=== PATIENT | male | born 1940 | race Caucasian/White ===

== ENCOUNTER → 2017-11-27 | Outpatient (CLI) | payer MEDICARE, OTHER ==
--- NOTE | 2017-11-27 12:38 | XR ---
EXAMINATION TYPE: XR lumbar spine 2 or 3V DATE OF EXAM: 11/27/2017 CLINICAL HISTORY: Spinal stenosis per order. Pain into feet per patient. TECHNIQUE: Frontal and lateral images of the lumbar spine are obtained. COMPARISON: None FINDINGS: There are 5 lumbar type vertebral bodies identified. The lumbar spine shows satisfactory alignment without evidence of acute fracture or dislocation. Vertebral body heights and disk space he ights are within normal limits. Moderate multilevel anterior spurring is present. Facet arthropathy l ower lumbar levels is noted. Vascular calcification overlying soft tissue is seen. IMPRESSION: As above.
== END | disposition home or self-care (01) ==
LOC: RADXRMAIN 11:48
PROVIDERS: ATTEND Internal Medicine Geriatric Medicine
DX: M46.86 Other specified inflammatory spondylopathies, lumbar region (principal)
CPT/HCPCS: 72100

== ENCOUNTER → 2018-11-24 | Outpatient (CLI) | payer MEDICARE ==
--- NOTE | 2018-11-24 09:11 | MR ---
EXAMINATION TYPE: MR iac wo/w con DATE OF EXAM: 11/24/2018 COMPARISON: None. HISTORY: Vertigo TECHNIQUE: Multiplanar, multisequence images of the brain and brainstem is performed without and with IV contras t, utilizing 9 mL intravenous Gadavist . FINDINGS: There is an 8.7 x 1.6 x 9.8 mm area of increased signal on T1 and T2-weighted images in the external capsule on the left. There is some blooming artifact adjacent to this. This shows restricte d diffusion. Midline structures are unremarkable. There is a normal craniocervical junction. No other areas of restricted diffusion are seen. There are normal vascular flow voids. The orbits are unremarkable. There is nuchal periosteal disease involving the left-sided ethmoid air cells. High-resolution imaging through the posterior fossa exquisitely demonstrates the seventh 8th nerve co mplex without evidence of a CP angle mass lesion or intracanalicular acoustic schwannoma. There are diffuse increased Virchow-Guzman spaces. There is both confluent and punctate periventricula r white matter change likely on the basis small vessel disease and chronic white matter ischemic darby ge. There is no mass effect, midline shift or intracranial blood. Following intravenous administration of gadolinium, I do not see evidence of abnormal enhancement. Sp ecifically, I do not see evidence of an enhancing intracanalicular tumor.. IMPRESSION: 1. 8.7 MM AREA OF INCREASED SIGNAL IN THE EXTERNAL CAPSULE ON THE LEFT MAY REPRESENT A SUBACUTE BLEED . THERE IS SOME BLOOMING ARTIFACT ADJACENT TO IT. 2. NO EVIDENCE OF A CP ANGLE MASS LESION OR INTRACANALICULAR ACOUSTIC SCHWANNOMA. 3. DIFFUSE INCREASED VIRCHOW-GUZMAN SPACES. 4. BOTH CONFLUENT AND PUNCTATE PERIVENTRICULAR WHITE MATTER CHANGE, CONSISTENT WITH A COMBINATION OF SMALL VESSEL DISEASE AND CHRONIC ISCHEMIC CHANGE.
== END | disposition home or self-care (01) ==
LOC: RADMRIMAIN 08:11
PROVIDERS: ATTEND Otolaryngology
DX: R90.89 Other abnormal findings on diagnostic imaging of central nervous system (principal)
CPT/HCPCS: 70553; A9585

== ENCOUNTER → 2018-11-28 | Outpatient (CLI) | payer MEDICARE, OTHER ==
--- NOTE | 2018-11-29 18:12 | ENG ---
ELECTRONYSTAGMOGRAM REPORT VIDEO ELECTRONYSTAGMOGRAPHIC REPORT: AGE: 78 ENG INDICATIONS: dizziness ongoing for about 1 year, gradual in onset, getting worse and is constant. Dizziness not affected by any positional changes. Denies hearing loss. Has bilateral tinnitus of a steady nature. VNG FINDINGS: SPONTANEOUS NYSTAGMUS: SACCADES: Saccades shows intact peak velocities, however, impaired accuracies and latencies. GAZE TEST: Gaze with fixation shows no nystagmus in any of the directions of gaze including centrally with vision denied. SINUSOIDAL TRACKING: Tracking is within normal limits. OKN TEST: Optokinetic nystagmus shows no significant asymmetries. HERNANDO-HALLPIKE TEST: POSITION TEST: Static position testing in seated, supine, head right, head left, on the right side and on the left side shows no significant nystagmus with eyes open or vision denied. CALORIC TEST: Caloric testing shows 8% unilateral right caloric weakness which is within normal limits. IMPRESSION: This VNG shows abnormal saccades, which favors central nervous system dysfunction. All other features of this test showed no other abnormalities. MMODL / IJN: [id number] /
== END ==
LOC: NEUROMAIN 06:37
PROVIDERS: ATTEND Otolaryngology
DX: R42 Dizziness and giddiness (principal)
CPT/HCPCS: 92537; 92540

== ENCOUNTER → 2018-12-20 | Outpatient (CLI) | payer MEDICARE, OTHER ==
--- NOTE | 2018-12-20 11:23 | US ---
EXAMINATION TYPE: US renal artery duplex complet DATE OF EXAM: 12/20/2018 COMPARISON: NONE CLINICAL HISTORY: I10 HYPERTENSION. MEASUREMENTS: RENAL SIZE: Rt Kidney: 12.2 x 5.5 x 4.9cm Lt Kidney: 13.0 x 5.7 x cm5.5 RESISTANCE INDEX Right: 0.64 Left: 0.62 RA/AO RATIO (< 3.5 ) Right: 2.3 Left: 1.7 RA VELOCITY ( < 180 cm/s) Right: 165cm/s Left: 123cm/s Extensive overlying bowel gas. Technically difficult study. Proximal aorta mostly obscured by bowel gas. RIGHT: cyst measuring 1.5 x 1.4 x 1.4cm, kidney measures large but overall symmetric. No evidence of renal artery stenosis. LEFT: cyst measuring 4.8 x 3.5 x 4.2cm, kidney measures large but overall symmetric, very limited vis ualization due to overlying bowel gas, distal portion of renal artery obscured. No evidence of renal artery stenosis however this side is more limited. IMPRESSION: 1. No sonographic evidence of renal arterial stenosis. Left kidney evaluation is limited by overlying bowel gas. 2. Bilateral renal cysts measuring up to 4.8 cm on the left and 1.5 cm on the right.
== END | disposition home or self-care (01) ==
LOC: RADUSWWP 07:41
PROVIDERS: ATTEND Internal Medicine Geriatric Medicine
DX: N28.1 Cyst of kidney, acquired (principal); I10 Essential (primary) hypertension
CPT/HCPCS: 93975

== ENCOUNTER 2023-09-17 23:08 | Inpatient (IN) | payer MEDICARE ==
[2023-09-17 23:57] LABS: ALT 20 U/L (4-49); AST 28 U/L (17-59); African American GFR (CKD) 65 (>60 ml/min/1.73 sqM); Albumin 3.5 g/dL (3.5-5.0); Alkaline Phosphatase 70 U/L (38-126); Anion Gap 8 mmol/L; Blood Urea Nitrogen 30 mg/dL (9-20); Calcium 8.6 mg/dL (8.4-10.2); Carbon Dioxide 22 mmol/L (22-30); Chloride 100 mmol/L (98-107); Glucose 103 mg/dL (74-99); Magnesium 1.9 mg/dL (1.6-2.3); Non-African American GFR(CKD) 56 (>60 ml/min/1.73 sqM); Potassium 3.9 mmol/L (3.5-5.1); Sodium 130 mmol/L (137-145); Total Bilirubin 0.7 mg/dL (0.2-1.3); Total Protein 5.9 g/dL (6.3-8.2)
[2023-09-18 00:02] LABS: Basophils % (A) 0 %; Eosinophils # (A) 0.3 k/uL (0-0.7); Eosinophils % (A) 4 %; HGB 13.1 gm/dL (13.0-17.5); Lymphocytes # (A) 0.8 k/uL (1.0-4.8); Lymphocytes % (A) 10 %; MCH 32.9 pg (25.0-35.0); MCHC 33.6 g/dL (31.0-37.0); MCV 97.8 fL (80.0-100.0); Mean Platelet Volume 9.7; Monocytes # (A) 0.8 k/uL (0-1.0); Monocytes % (A) 10 %; Neutrophils # (A) 5.6 k/uL (1.3-7.7); Neutrophils % (A) 73 %; Platelet Count 140 k/uL (150-450); RBC 3.99 m/uL (4.30-5.90); RDW 14.3 % (11.5-15.5); WBC 7.6 k/uL (3.8-10.6)
[2023-09-18 00:03] LABS: Prothrombin Time 11.3 sec (10.0-12.5)
[2023-09-18] MEDS ORDERED: ACETAMINOPHEN TAB 325 MG TAB PO PRN (01:04)
[2023-09-18] MEDS ORDERED: ONDANSETRON 4 MG/2 ML VIAL IVP PRN (01:04)
[2023-09-18] MEDS ORDERED: NALOXONE 0.4 MG/ML 1 ML VIAL IV PRN (01:04)
--- NOTE | 2023-09-18 01:04 | ED ---
General Adult HPI - General Chief complaint: Weakness Stated complaint: Weakness Time Seen by Provider: 09/17/23 23:28 Source: patient, EMS, RN notes reviewed, old records reviewed Mode of arrival: EMS Limitations: no limitations - History of Present Illness Initial comments: Patient is an 83-year-old male presents emergency department for weakness. Has been ongoing for last few weeks to months. Progressively worsening. Primarily in the lower extremities. Has noticed intermittent urinary incontinence recently as well. Also low-grade fever today. Denies any falls or pain. Has a history of hypertension. Denies any fevers, chills, cough, chest pain, shortness of breath, abdominal pain with nausea, vomiting, diarrhea. Presents for further evaluation at this time.Patient denies saddle paresthesias, bowel incontinence, lower back pain. - Related Data Home Medications Medication Instructions Recorded Confirmed Aspirin 1 tab PO DAILY 02/25/17 02/25/17 Diltiazem Cd [Cardizem Cd] 120 mg PO DAILY 02/25/17 02/25/17 Pravastatin Sodium [Pravachol] 1 tab PO DAILY 02/25/17 02/25/17 cloNIDine HCL [Catapres] 1 tab PO BID 02/25/17 02/25/17 hydroCHLOROthiazide [Hydrodiuril] 1 tab PO DAILY 02/25/17 02/25/17 Allergies Allergy/AdvReac Type Severity Reaction Status Date / Time No Known Allergies Allergy Verified 09/17/23 23:18 Review of Systems ROS Statement: Those systems with pertinent positive or pertinent negative responses have been documented in the HPI. Review of Systems: CONST: Denies fever EYES: Denies blurry vision ENT: Denies nasal congestion C/V: Denies Chest pain RESP: Denies shortness of breath GI: Denies abdominal pain : Denies dysuria SKIN: Denies rash. MSK: Denies joint pain. NEURO: Denies headache ROS Other: All systems not noted in ROS Statement are negative. Past Medical History Past Medical History: Hypertension History of Any Multi-Drug Resistant Organisms: None Reported Past Surgical History: Orthopedic Surgery Past Psychological History: No Psychological Hx Reported Past Alcohol Use History: Occasional Past Drug Use History: None Reported General Exam - General Exam Comments Initial Comments: General: Appears in no acute distress. HEAD: Normal with no signs of head trauma. EYES: PERRLA, EOMI, conjunctiva normal, no discharge. ENT: Hearing grossly intact, normal oropharynx. RESPIRATORY: Clear breath sounds bilaterally. No wheezes, rales, or rhonchi. C/V: Regular rate and rhythm. S1 and S2 auscultated, no edema, peripheral pulses 2+ and intact throughout ABD: Abd is soft, nontender, nondistended EXT: Normal range of motion, no obvious deformity SKIN: No rashes or lesions observed on exposed skin. NEURO: Alert and oriented x 4. Generalized weakness with no focal weakness. NIH of 0. GCS of 15. Limitations: no limitations Course Vital Signs 09/17/23 23:11 Temperature 100.3 F H Pulse Rate 68 Respiratory 22 Rate Blood Pressure 168/90 O2 Sat by Pulse 95 Oximetry Medical Decision Making - Medical Decision Making Was pt. sent in by a medical professional or institution (JANET Preciado, [employer] OFFICER, urgent care, hospital, or penitentiary...) When possible be specific @ -No Did you speak to anyone other than the patient for history (EMS, parent, family, police, friend...)? What history was obtained from this source @ -No Did you review nursing and triage notes (agree or disagree)? Why? @ -I reviewed and agree with nursing and triage notes Were old charts reviewed (outside hosp., previous admission, EMS record, old EKG, old radiological studies, urgent care reports/EKG's, penitentiary records)? Report findings @ -Old charts reviewed confirmed patient has a history of hypertension. Differential Diagnosis (chest pain, altered mental status, abdominal pain women, abdominal pain men, vaginal bleeding, weakness, fever, dyspnea, syncope, headache, dizziness, GI bleed, back pain, seizure, CVA, palpatations, mental health, musculoskeletal)? @ -Differential Weakness: Hypoglycemia, shock, sepsis, hyponatremia, anemia, infection, ME, ETOH, adverse medicine reaction, overdose, stroke, this is not meant to be an all-inclusive list. EKG interpreted by me (3pts min.). @ -As above X-rays interpreted by me (1pt min.). @ - CT interpreted by me (1pt min.). @ - U/S interpreted by me (1pt. min.). @ -None done What testing was considered but not performed or refused? (CT, X-rays, U/S, labs)? Why? @ -None What meds were considered but not given or refused? Why? @ -None Did you discuss the management of the patient with other professionals (professionals i.e. DrZachary, PA, [employer] OFFICER, lab, RT, psych nurse, social research assistant, glass block installer, teacher, public service officer, geriatric case manager)? Give summary @ -No Was smoking cessation discussed for >3mins.? @ -No Was critical care preformed (if so, how long)? @ -No Were there social determinants of health that impacted care today? How? (Homelessness, low income, unemployed, alcoholism, drug addiction, transportation, low edu. Level, literacy, decrease access to med. care, usp, rehab)? @ -No Was there de-escalation of care discussed even if they declined (Discuss DNR or withdrawal of care, Hospice)? DNR status @ -No What co-morbidities impacted this encounter? (DM, HTN, Smoking, COPD, CAD, Cancer, CVA, ARF, Chemo, Hep., AIDS, mental health diagnosis, sleep apnea, morbid obesity)? @ -None Was patient admitted / discharged? Hospital course, mention meds given and route, prescriptions, significant lab abnormalities, going to OR and other pertinent info. @ -Based on the patient's presentation and physical exam, presents with a low- grade fever as well as generalized weakness primarily in the lower extremities which has been progressive. Seems to have progressive debility. Will obtain basic weakness workup. He has no obvious focal deficits at this time. He will receive IV fluids as well as Tylenol for fever control. He was in agreement this plan. Vital signs are within acceptable limits other than the fever. Laboratory studies are remarkable for normal lactic acid. No leukocytosis. Urinalysis as well as Cepheid still pending at time of admission. I discussed results with the patient and I would like to admit him for the weakness and debility. I also discussed results with patient's admitting physician, Dr. Patino who accepted the admission. Undiagnosed new problem with uncertain prognosis? @ -No Drug Therapy requiring intensive monitoring for toxicity (Heparin, Nitro, Insulin, Cardizem)? @ -No Were any procedures done? @ -No Diagnosis/symptom? @ -Weakness, debility Acute, or Chronic, or Acute on Chronic? @ -Acute Uncomplicated (without systemic symptoms) or Complicated (systemic symptoms)? @ -Complicated Side effects of treatment? @ -No Exacerbation, Progression, or Severe Exacerbation? @ -No Poses a threat to life or bodily function? How? (Chest pain, USA, ME, pneumonia, PE, COPD, DKA, ARF, appy, cholecystitis, CVA, Diverticulitis, Homicidal, Suicidal, threat to staff... and all critical care pts) @ -Yes - Lab Data Result diagrams: 09/17/23 23:33 09/17/23 23:33 Lab Results 09/17/23 09/17/23 09/17/23 Range/Units 23:33 23:33 23:33 WBC 7.6 (3.8-10.6) k/uL RBC 3.99 L (4.30-5.90) m/uL Hgb 13.1 (13.0-17.5) gm/dL Hct 39.0 (39.0-53.0) % MCV 97.8 (80.0-100.0) fL MCH 32.9 (25.0-35.0) pg MCHC 33.6 (31.0-37.0) g/dL RDW 14.3 (11.5-15.5) % Plt Count 140 L (150-450) k/uL MPV 9.7 Neutrophils % 73 % Lymphocytes % 10 % Monocytes % 10 % Eosinophils % 4 % Basophils % 0 % Neutrophils # 5.6 (1.3-7.7) k/uL Lymphocytes # 0.8 L (1.0-4.8) k/uL Monocytes # 0.8 (0-1.0) k/uL Eosinophils # 0.3 (0-0.7) k/uL Basophils # 0.0 (0-0.2) k/uL PT 11.3 (10.0-12.5) sec INR 1.0 (<1.2) APTT 24.0 (22.0-30.0) sec Sodium 130 L (137-145) mmol/L Potassium 3.9 (3.5-5.1) mmol/L Chloride 100 (98-107) mmol/L Carbon Dioxide 22 (22-30) mmol/L Anion Gap 8 mmol/L BUN 30 H (9-20) mg/dL Creatinine 1.19 (0.66-1.25) mg/dL Est GFR (CKD-EPI)AfAm 65 (>60 ml/min/1.73 sqM) Est GFR (CKD-EPI)NonAf 56 (>60 ml/min/1.73 sqM) Glucose 103 H (74-99) mg/dL Plasma Lactic Acid Fei (0.7-2.0) mmol/L Calcium 8.6 (8.4-10.2) mg/dL Magnesium 1.9 (1.6-2.3) mg/dL Total Bilirubin 0.7 (0.2-1.3) mg/dL AST 28 (17-59) U/L ALT 20 (4-49) U/L Alkaline Phosphatase 70 (38-126) U/L Total Protein 5.9 L (6.3-8.2) g/dL Albumin 3.5 (3.5-5.0) g/dL 09/17/23 Range/Units 23:33 WBC (3.8-10.6) k/uL RBC (4.30-5.90) m/uL Hgb (13.0-17.5) gm/dL Hct (39.0-53.0) % MCV (80.0-100.0) fL MCH (25.0-35.0) pg MCHC (31.0-37.0) g/dL RDW (11.5-15.5) % Plt Count (150-450) k/uL MPV Neutrophils % % Lymphocytes % % Monocytes % % Eosinophils % % Basophils % % Neutrophils # (1.3-7.7) k/uL Lymphocytes # (1.0-4.8) k/uL Monocytes # (0-1.0) k/uL Eosinophils # (0-0.7) k/uL Basophils # (0-0.2) k/uL PT (10.0-12.5) sec INR (<1.2) APTT (22.0-30.0) sec Sodium (137-145) mmol/L Potassium (3.5-5.1) mmol/L Chloride (98-107) mmol/L Carbon Dioxide (22-30) mmol/L Anion Gap mmol/L BUN (9-20) mg/dL Creatinine (0.66-1.25) mg/dL Est GFR (CKD-EPI)AfAm (>60 ml/min/1.73 sqM) Est GFR (CKD-EPI)NonAf (>60 ml/min/1.73 sqM) Glucose (74-99) mg/dL Plasma Lactic Acid Fei 0.9 (0.7-2.0) mmol/L Calcium (8.4-10.2) mg/dL Magnesium (1.6-2.3) mg/dL Total Bilirubin (0.2-1.3) mg/dL AST (17-59) U/L ALT (4-49) U/L Alkaline Phosphatase (38-126) U/L Total Protein (6.3-8.2) g/dL Albumin (3.5-5.0) g/dL - EKG Data -: EKG Interpreted by Me EKG Comments: 12-lead Electrocardiogram Interpretation Note EKG was reviewed and interpreted by myself. 12-lead ECG performed at 2350 is interpreted by me as revealing normal sinus rhythm with first-degree AV block at a rate of 74 beats per minute. Left axis deviation. NE interval is 248 ms, QRS duration is 129 ms, QTc is 4 1045 ms.. There were no ST or T wave abnormalities to suggest myocardial ischemia or injury. R wave progression across the precordium was satisfactory. By my interpretation this EKG is non- diagnostic for acute ischemia. Disposition Clinical Impression: Weakness, Debility Disposition: ADMITTED IP TO THIS HOSP Condition: Stable Referrals: Liza Correia MD [Primary Care Provider] - 1-2 days Time of Disposition: 01:03
--- NOTE | 2023-09-18 01:47 | XR ---
EXAM: XR Chest, 2 Views CLINICAL HISTORY: ITS.REASON XR Reason: Weakness TECHNIQUE: Frontal and lateral views of the chest. COMPARISON: No relevant prior studies available. IMPRESSION: -Cardiomegaly. Bibasilar opacities.
--- NOTE | 2023-09-18 01:52 | CT ---
EXAM: CT Lumbar Spine Without Intravenous Contrast CLINICAL HISTORY: ITS.REASON CT Reason: leg weakness TECHNIQUE: Axial computed tomography images of the lumbar spine without intravenous contrast. CTDI is 33.4 mGy and DLP is 1167.6 mGy-cm. This CT exam was performed using one or more of the following dose reduction techniques: automated exposure control, adjustment of the mA and/or kV according to patient size, and/or use of iterative reconstruction technique. COMPARISON: No relevant prior studies available. FINDINGS: Vertebrae: No acute fracture. No sagittal subluxation. Discs/spinal canal/neural foramina: Mild L3-4 spinal canal stenosis. Mild to moderate bilateral L3-4, L4-5 and L5-S1 foraminal stenosis. Soft tissues: Unremarkable. IMPRESSION: No acute fracture. Degenerative changes.
[2023-09-18] MEDS: ACETAMINOPHEN TAB 500 MG TAB PO STA (01:55)
[2023-09-18] MEDS: SODIUM CHLORIDE 0.9% 1,000 ML IV SCH (01:56)
[2023-09-18] MEDS: SODIUM CHLORIDE 0.9% 1,000 ML IV STA (01:56)
[2023-09-18 02:39] LABS: Appearance,Urine Clear (Clear); Bilirubin,Urine Negative (Negative); Blood,Urine Negative (Negative); Color,Urine Light Yellow; Glucose,Urine (UA) Negative (Negative); Ketones,Urine Trace (Negative); Leukocyte Esterase,Urine Negative (Negative); Mucus,Urine Rare /hpf; Nitrite,Urine Negative (Negative); Protein,Urine 1+ (Negative); RBC,Urine 1 /hpf (0-5); Specific Gravity,Urine 1.017 (1.001-1.035); Squamous Epithelial Cell,Urine <1 /hpf (0-4); Urobilinogen,Urine <2.0 mg/dL (<2.0); WBC,Urine <1 /hpf (0-5)
[2023-09-18] MEDS: LABETALOL 200 MG TAB PO SCH (11:35)
[2023-09-18] MEDS: hydrALAZINE HCL 50 MG TAB PO SCH (11:35)
--- NOTE | 2023-09-18 16:33 | CT ---
EXAMINATION TYPE: CT brain wo con DATE OF EXAM: 09/18/2023 COMPARISON: None HISTORY: Weakness, ?CVA CT DLP: 1192.[address] of the brain was performed. The ventricles, basal cisterns and sulci overlying the cerebral convexities demonstrate mild enlargem ent. There is no evidence for intracranial hemorrhage or sulcal effacement. There is decreased attenuation about the periventricular white matter and deep white matter of both c erebral hemispheres, compatible with chronic small vessel ischemia. Differential diagnosis does inclu de demyelination. No mass effects are seen.No midline shift. Osseous calvarium is intact. If symptoms persist consider MRI. IMPRESSION: 1. Age related atrophic and chronic small vessel ischemic change without acute intracranial process s een at this time.
--- NOTE | 2023-09-18 17:48 | P.HPIM ---
History of Present Illness H&P Date: 09/18/23 Gold Tsang, is an 83-year-old male who presented to [facility] emergency room with a chief complaint of worsening generalized weakness, and urinary incontinence, symptoms started about 1 week ago and has been worsening, patient was seen and examined in the emergency room, his and daughter at the bedside, they state that he was in his usual state of health until about 1 week ago where he started having worsening weakness, and had several episodes of urinary incontinence, they state that he was diagnosed with possible Parkinson disease about 1 year ago he was tried on Sinemet without any significant improvement and that was discontinued, a possible diagnosis of Lewy body dementia was entertained, family also stated that 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 He was ealuated in the emergency room vital examination on presentation revealed 100.3 pulse 68 respiration 22 blood pressure 168/90 pulse ox 95% on room air Laboratory data revealed a white blood count of 7.6 hemoglobin 13.1 platelet co unt 140 sodium 130 BUN 30 creatinine 1.19 BNP 5570 Testing in the emergency room revealed CT scan of the brain revealed age-related atrophic and chronic small vessel ischemic change without acute intracranial process, CT scan of the lumbar spine revealed no acute fracture, chest x-ray revealed cardiomegaly with bibasilar opacities Patient was admitted to medical floor for further evaluation and treatment Past Medical History Past Medical History: Hypertension History of Any Multi-Drug Resistant Organisms: None Reported Past Surgical History: Orthopedic Surgery Past Psychological History: No Psychological Hx Reported Past Alcohol Use History: Occasional Past Drug Use History: None Reported Medications and Allergies Home Medications Medication Instructions Recorded Confirmed Type Amoxicillin 500 mg PO BID 09/18/23 09/18/23 History Aspirin EC [Ecotrin Low Dose] 81 mg PO DAILY 09/18/23 09/18/23 History Labetalol [Trandate] 200 mg PO TID 09/18/23 09/18/23 History Magnesium Oxide [Magox 400] 400 mg PO DAILY 09/18/23 09/18/23 History Temazepam [Restoril] 15 mg PO HS 09/18/23 09/18/23 History hydrALAZINE HCL [Apresoline] 50 mg PO BID 09/18/23 09/18/23 History traMADol HCl [Ultram] 50 mg PO HS PRN 09/18/23 09/18/23 History Allergies Allergy/AdvReac Type Severity Reaction Status Date / Time No Known Allergies Allergy Verified 09/18/23 08:14 Physical Exam Vitals: Vital Signs Temp Pulse Resp BP BP Pulse Ox 09/18/23 11:29 170/83 09/18/23 06:00 60 18 165/84 98 09/18/23 05:00 64 18 167/112 97 09/18/23 03:20 98.3 F 71 18 172/86 98 09/18/23 01:49 74 24 192/97 98 09/18/23 01:00 72 20 183/97 98 09/18/23 00:00 78 20 175/87 99 09/17/23 23:11 100.3 F H 68 22 168/90 95 Intake and Output 09/17/23 09/18/23 09/18/23 22:59 06:59 14:59 Other: Voiding Method External Catheter Weight 98.883 kg In general patient is alert and oriented x 3 in no distress HEENT head normocephalic and atraumatic Neck is supple no JVD no goiter no lymphadenopathy no carotid bruit Chest examination is clear to auscultation no crackles no wheezing Cardiac exam reveals regular heart sounds S1 and S2 no gallops no murmurs Abdomen is soft nontender no organomegaly with normal bowel sounds Extremity exam reveals no edema no cyanosis or clubbing Neurological examination reveals no gross focal deficits Results CBC & Chem 7: 09/17/23 23:33 09/17/23 23:33 Labs: Abnormal Lab Results - Last 24 Hours (Table) 09/17/23 09/17/23 09/18/23 Range/Units 23:33 23:33 01:49 RBC 3.99 L (4.30-5.90) m/uL Plt Count 140 L (150-450) k/uL Lymphocytes # 0.8 L (1.0-4.8) k/uL Sodium 130 L (137-145) mmol/L BUN 30 H (9-20) mg/dL Glucose 103 H (74-99) mg/dL Total Protein 5.9 L (6.3-8.2) g/dL Urine Protein 1+ H (Negative) Urine Ketones Trace H (Negative) Urine Mucus Rare H (None) /hpf Assessment and Plan Plan: Generalized weakness, with difficulty standing and walking Febrile illness, possible pneumonia with bibasilar opacities on chest x-ray Recent onset of urinary incontinence Underlying history of possible Lewy body dementia Underlying history of possible Parkinson disease Underlying history of hypertension At this time patient was seen and examined Home medications reviewed and reordered Cardiology consultation and neurology consultation requested Will check CT scan of the chest Check echocardiogram Add IV antibiotic for possible pneumonia For DVT prophylaxis subcu Marco Will follow in a.m.
[2023-09-18] MEDS ORDERED: RX INFO: IV CONTRAST WAS GIVEN 1 EACH MISC MISCELLANE PRN (17:49)
[2023-09-18] MEDS: ASPIRIN 81 MG PO SCH (18:16)
[2023-09-18] MEDS: AZITHROMYCIN 500 MG in SODIUM CHLORIDE 0.9% 250 ML IVPB SCH (18:52)
--- NOTE | 2023-09-18 20:01 | P.CNNES ---
History of Present Illness Consult date: 09/18/23 Requesting physician: Duong Persaud Reason for Consult: lower extremity weakness History of Present Illness: Patient is a 83-year-old right-handed male with history of Lewy body dementia, hypertension came to the hospital by ambulance yesterday at 11:08 PM. Patient's and patient's daughter were present, who also provided with a history. Patient has been diagnosed with Lewy body dementia. At first Parkinson's was suspected, but then was diagnosed with Lewy body dementia. Patient follows up with neurologist Dr. Murphy in [facility]. Patient does have some limited mobility since his hip fracture in summer 2022. However he still walks with a shuffle, and can walk around the block with a cane. He developed acute progressive weakness of the lower limbs that started on Monday or Monday of last week, 09/13/2023 or 09/14/2023. Around that time he has received heavy dose of amoxicillin for some dental workup. He has also developed some rash on the thigh. Patient has history of frequency of urine for almost a year, however patient has developed urine incontinence since all the symptoms started. He continues to be incontinent. He denies any pain in the neck or the spine. He does have some neuropathy and the knees, but nothing very concerning. Denies any worsening of his neuropathy lately. He has not been sleeping lately for the last few days. There is no report of slurred speech, facial droop or any strokelike symptoms. As per EMS flowsheet they arrived to see the patient who had fallen. Patient was alert and oriented x 4 laying on the floor in his home. Family reported that they were assisting the patient into bed but he became too weak and was unable to ambulate further. Family denied that he had fallen, stating he will lie down due to weakness. Patient has been presenting with increased weakness for the past week with increasing severity. This day, patient has been unable to ambulate on his own. Family reported that patient had seen his primary care physician 4 days prior, with blood work and urinalysis performed. Lab work returned as normal. EKG showed sinus arrhythmia with first-degree block. Oral temperature 100.3, blood glucose 112. Stroke scale was negative. IV was started. Patient's blood pressure was 162/90 pulse rate 101, saturation 94%. Patient's temperature on arrival was 100.3. Blood pressure 168/90, pulse rate 68. Blood test shows normal CBC, PT PTT, normal potassium, sodium 130, hepatic panel, renal functions are normal. UA negative. Influenza, RSV and coronavirus PCR negative. EKG showed sinus rhythm with first-degree AV block with occasional supraventricular premature complexes. Chest x-ray showed cardiomegaly, bibasilar opacities. CT of the lumbar spine showed no acute fracture. Degenerative changes. Repeat EKG shows no further interpretation possible. Atypical ECG. Patient's home medications include tramadol 50 mg, temazepam, labetalol 200 mg 3 times daily, aspirin 81 mg, hydralazine 50 mg twice daily and amoxicillin. Patient has history of hypertension for years, denies diabetes. Denies any tobacco use, drinks couple beers a day. Review of Systems Constitutional: Reports fever, Reports weight gain, Denies chills, Denies sweats Eyes: denies blurred vision, denies diplopia, denies pain, denies loss of peripheral vision Ears: deny: decreased hearing, ear discharge Ears, nose, mouth and throat: Reports headache (today), Denies vertigo Cardiovascular: Denies chest pain, Denies lightheadedness, Denies shortness of breath Respiratory: Reports cough, Reports excessive sputum Gastrointestinal: Denies abdominal pain, Denies diarrhea, Denies nausea, Denies vomiting Genitourinary: Reports incontinence, Denies dysuria Musculoskeletal: Denies low back pain, Denies neck pain Integumentary: Reports rash, Denies pruritus Neurological: Reports as per HPI Psychiatric: Reports anxiety, Reports depression Endocrine: Reports fatigue, Reports weight change Hematologic/Lymphatic: Reports easy bleeding, Reports easy bruising Past Medical History Past Medical History: Hypertension History of Any Multi-Drug Resistant Organisms: None Reported Past Surgical History: Orthopedic Surgery Past Psychological History: No Psychological Hx Reported Past Alcohol Use History: Occasional Past Drug Use History: None Reported Medications and Allergies Home Medications Medication Instructions Recorded Confirmed Type Amoxicillin 500 mg PO BID 09/18/23 09/18/23 History Aspirin EC [Ecotrin Low Dose] 81 mg PO DAILY 09/18/23 09/18/23 History Labetalol [Trandate] 200 mg PO TID 09/18/23 09/18/23 History Magnesium Oxide [Magox 400] 400 mg PO DAILY 09/18/23 09/18/23 History Temazepam [Restoril] 15 mg PO HS 09/18/23 09/18/23 History hydrALAZINE HCL [Apresoline] 50 mg PO BID 09/18/23 09/18/23 History traMADol HCl [Ultram] 50 mg PO HS PRN 09/18/23 09/18/23 History Allergies Allergy/AdvReac Type Severity Reaction Status Date / Time No Known Allergies Allergy Verified 09/18/23 08:14 Physical Examination - Vital Signs Vital Signs: Vital Signs Temp Pulse Resp BP BP Pulse Ox 09/18/23 14:17 98.7 F 77 17 162/93 97 09/18/23 11:29 170/83 09/18/23 06:00 60 18 165/84 98 09/18/23 05:00 64 18 167/112 97 09/18/23 03:20 98.3 F 71 18 172/86 98 09/18/23 01:49 74 24 192/97 98 09/18/23 01:00 72 20 183/97 98 09/18/23 00:00 78 20 175/87 99 09/17/23 23:11 100.3 F H 68 22 168/90 95 Intake and Output 09/17/23 09/18/23 09/18/23 22:59 06:59 14:59 Other: Voiding Method External Catheter Weight 98.883 kg Patient is an elderly male, in no acute distress. Patient is alert awake oriented to time place and person. Patient knows it is September 2023 and that he is in [facility] in [facility]. Speech and language functions are normal. Patient can name all objects presented and can repeat very well. No aphasia or dysarthria. Attention, concentration and fund of knowledge is adequate. Detailed cognitive function testing deferred. On cranial nerve examination, pupils are equal, round and reacting to light, visual crump are full on confrontation, with no neglect on double simultaneous stimulation. Extraocular muscles are intact with no nystagmus. Face is symmetric, tongue protrudes to the midline. Palatal elevation and sensation normal, hearing and shoulder shrug normal, facial sensation normal. On muscle strength testing, there is no pronator drift and the strength is normal in arms and legs distally and proximally. Deep tendon reflexes are asymmetric (right/left) biceps 3/2+, brachioradialis 3/2+, knees 2+3/2+3, ankles 0/0, plantars are possible upgoing versus withdrawal bilaterally. Sensory to touch is equal with no neglect on double simultaneous stimulation. Cerebellar function showed no ataxia for pdzdby-bo-yria testing, although patient was very tremulous bilaterally, right worse than left. No d ysdiadochokinesia. No ataxia for [id number] testing on either side. Tone is slightly increased in the arms and bulk of muscles normal. Gait deferred.. On general examination, there is no carotid bruit or murmur, S1-S2 audible. Chest is clear on consultation. Abdomen is soft nontender. No organomegaly, bowel sounds present. Peripheral pulses are present. Mild peripheral edema. Results - Laboratory Findings CBC and BMP: 09/17/23 23:33 09/17/23 23:33 Abnormal Lab Findings: Abnormal Labs 09/17/23 09/17/23 09/18/23 23:33 23:33 01:49 RBC 3.99 L Plt Count 140 L Lymphocytes # 0.8 L Sodium 130 L BUN 30 H Glucose 103 H Total Protein 5.9 L Urine Protein 1+ H Urine Ketones Trace H Urine Mucus Rare H Assessment and Plan Assessment: * 83-year-old male presenting with 5-day history of progressive gait difficulty, now with inability to walk. Exact cause is uncertain. Examination is nonfocal. Patient has normal muscle strength, and his parkinsonism is stable. * Patient has low-grade fever on presentation, therefore an occult infection can make generalized weakness worse, particularly in a patient with neurodegenerative condition. * New onset incontinence, unclear cause. Examination is nonfocal. * Lewy body dementia * Hypertension Plan: * CT head was performed. It revealed age-related atrophic and chronic small vessel ischemic change, without acute intracranial process seen at this time. I personally reviewed CT head, agree with the findings. 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 * Check MRI of the brain rule out CVA * Patient had CT of the chest with contrast, pending results. * If no obvious answers identified by MRI brain and other workup mentioned here, then will consider MRI of the cervical and lumbar spine. * B12, folate, TSH, MMA, A1c. * PT OT evaluate gait. * Consider urology consultation for incontinence. * Dr. Aftab Iyer will resume neurology service in the morning. * Thank you for the consult. Time with Patient: Greater than 30
[2023-09-18] MEDS ORDERED: hydrALAZINE HCL 50 MG TAB PO SCH (21:00)
--- NOTE | 2023-09-18 21:38 | CT ---
EXAMINATION TYPE: CT chest w con DATE OF EXAM: 09/18/2023 COMPARISON: Radiograph same day HISTORY: 83-year-old male bibasilar opacities on chest x-ray, weakness TECHNIQUE: Contiguous axial scanning of the chest after the administration of 100 mL of Isovue 300. Coronal/sagittal reconstructions performed. CT DLP: 527.7mGycm. Automatic exposure control utilized for a dose reduction. FINDINGS: The heart is mildly enlarged without pericardial effusion. Prominent LAD and circumflex coronary elizabeth ry calcifications are present. 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 Mild atherosclerotic arch calcifications. Bovine configurati on to the aortic arch. Large caliber main right and left pulmonary arteries measuring up to 3.6 cm suggesting underlying pul monary arterial hypertension. Right hilar node measuring 2.0 cm and subcarinal node measuring 1.6 cm. There is flattening of the bilateral mainstem bronchi with prominent respiratory motion. Some central interstitial thickening is noted along the bronchovascular bundles. Scattered mild septal lines are also present throughout. Prominent breathing motion artifact limits t he evaluation. A few minimal areas of groundglass change in the lower lungs. Bandlike areas of scarri ng or atelectasis at the left base. No pleural effusion. Visualized upper abdomen shows bilateral renal cortical cysts measuring up to 4.3 cm. Prominent fluid -filled small bowel loops upper abdomen probably transient. 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 IMPRESSION: 1. Mild cardiomegaly with prominent LAD and circumflex coronary artery calcifications. Pulmonary elizabeth rial hypertension and scattered septal lines with central interstitial thickening. Correlate for mild CHF with pulmonary vascular congestion. 2. Flattening of the bilateral mainstem bronchi with prominent respiratory motion. Findings may refle ct bronchomalacia. 3. 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
[2023-09-18] MEDS ORDERED: LABETALOL 200 MG TAB PO SCH (22:00)
[2023-09-18] MEDS: TEMAZEPAM 15 MG CAP PO SCH (22:32)
[2023-09-19] MEDS: MAGNESIUM OXIDE 400 MG TAB PO SCH (08:28)
--- NOTE | 2023-09-19 10:36 | P.PN ---
Subjective Progress Note Date: 09/19/23 Gold Tsang, is an 83-year-old male who presented to [facility] emergency room with a chief complaint of worsening generalized weakness, and urinary incontinence, symptoms started about 1 week ago and has been worsening, patient was seen and examined in the emergency room, his and daughter at the bedside, they state that he was in his usual state of health until about 1 week ago where he started having worsening weakness, and had several episodes of urinary incontinence, they state that he was diagnosed with possible Parkinson disease about 1 year ago he was tried on Sinemet without any significant improvement and that was discontinued, a possible diagnosis of Lewy body dementia was entertained, family also stated that he is followed by a dye jig operator in [place], he had a recent stress test which was within normal limits. He was ealuated in the emergency room vital examination on presentation revealed 100.3 pulse 68 respiration 22 blood pressure 168/90 pulse ox 95% on room air Laboratory data revealed a white blood count of 7.6 hemoglobin 13.1 platelet count 140 sodium 130 BUN 30 creatinine 1.19 BNP 5570 Testing in the emergency room revealed CT scan of the brain revealed age-related atrophic and chronic small vessel ischemic change without acute intracranial process, CT scan of the lumbar spine revealed no acute fracture, chest x-ray revealed cardiomegaly with bibasilar opacities Patient was admitted to medical floor for further evaluation and treatment On 09/19/2023 patient is currently resting comfortably in bed. MRI of the brain has been ordered per neurology. Patient having abnormal CT scan of chest will consult pulmonary services and procalcitonin level. At this time patient denies chest pain or shortness of breath. Patient denies nausea vomiting or diarrhea. Patient denies any urinary burning or frequency. Objective - Vital Signs Vital signs: Vital Signs Temp 98.3 F 09/19/23 07:21 Pulse 75 09/19/23 07:21 Resp 16 09/19/23 07:21 BP 182/79 09/19/23 07:21 Pulse Ox 93 L 09/19/23 07:21 FiO2 Intake & Output 09/18/23 09/19/23 09/19/23 18:59 06:59 18:59 Intake Total 950 600 240 Output Total 300 Balance 650 600 240 Weight 98.883 kg Intake: Intake, IV Titration 950 600 Amount Sodium Chloride 0.9% 1, 900 600 000 ml @ 75 mls/hr IV . [id number] [facility] Rx#:[id number] cefTRIAXone 1 gm In 50 Sodium Chloride 0.9% 50 ml @ 100 mls/hr IVPB Q24HR [facility] Rx#:[id number] Oral 240 Output: Urine 300 Other: Voiding Method External Catheter Diaper Diaper Incontinent # Voids 1 - Exam In general patient is alert and oriented x 3 in no distress HEENT head normocephalic and atraumatic Neck is supple no JVD no goiter no lymphadenopathy no carotid bruit Chest examination is clear to auscultation no crackles no wheezing Cardiac exam reveals regular heart sounds S1 and S2 no gallops no murmurs Abdomen is soft nontender no organomegaly with normal bowel sounds Extremity exam reveals no edema no cyanosis or clubbing Neurological examination reveals no gross focal deficits - Labs CBC & Chem 7: 09/17/23 23:33 09/17/23 23:33 Assessment and Plan Plan: Generalized weakness, with difficulty standing and walking Febrile illness, possible pneumonia with bibasilar opacities on chest x-ray Recent onset of urinary incontinence Underlying history of possible Lewy body dementia Underlying history of possible Parkinson disease Underlying history of hypertension At this time patient was seen and examined Home medications reviewed and reordered Cardiology consultation and neurology consultation requested MRI ordered per neurology Check echocardiogram Add IV antibiotic for possible pneumonia For DVT prophylaxis subcu Marco Will follow in a.m.
[2023-09-19 11:14] LABS: ALT 16 U/L (10-49); AST 19 U/L (14-35); Albumin 3.6 g/dL (3.8-4.9); Alkaline Phosphatase 65 U/L (41-126); BUN/Creat Ratio 14.36 Ratio (12.00-20.00); Blood Urea Nitrogen 15.8 mg/dL (9.0-27.0); Carbon Dioxide 21.9 mmol/L (21.6-31.8); Chloride 99 mmol/L (96-109); Globulin 1.8 g/dL (1.6-3.3); Glucose 83 mg/dL (70-110); Potassium 3.7 mmol/L (3.5-5.5); Sodium 133 mmol/L (135-145); Total Bilirubin 0.5 mg/dL (0.3-1.2); Total Protein 5.4 g/dL (6.2-8.2)
[2023-09-19 11:16] LABS: Basophils # (A) 0.05 X 10*3/uL (0.00-0.10); Basophils % (A) 0.7 %; Eosinophils # (A) 0.22 X 10*3/uL (0.04-0.35); Eosinophils % (A) 2.9 %; HCT 37.1 % (39.6-50.0); HGB 12.7 g/dL (13.0-17.0); Lymphocytes # (A) 0.84 X 10*3/uL (0.90-5.00); Lymphocytes % (A) 11.2 %; MCH 32.4 pg (27.0-32.0); MCHC 34.2 g/dL (32.0-37.0); MCV 94.6 FL (80.0-97.0); Mean Platelet Volume 12.6 FL (9.5-12.2); Monocytes # (A) 0.69 X 10*3/uL (0.20-1.00); Monocytes % (A) 9.2 %; NRBC Per 100 WBC 0 X 10*3/uL (0.00-0.01); Neutrophils % (A) 75.7 %; Platelet Count 149 X 10*3/uL (140-440); RBC 3.92 X 10*6/uL (4.40-5.60); RDW 13.8 % (11.5-14.5); WBC 7.52 X 10*3/uL (4.50-10.00)
--- NOTE | 2023-09-19 13:59 | P.CRDCN ---
History of Present Illness History of present illness: HISTORY OF PRESENTING ILLNESS This is a pleasant 83-year-old with past medical history significant for hypertension, Teddy body dementia, possible Parkinson's disease. Patient does not follow with a financial compliance officer locally however follows with a financial compliance officer in [place]. He states he has not had any significant major cardiac history with prior testing including stress tests and echoes in the past been fairly unremarkable. Cardiology was consult that secondary to CHF. Patient denies any history of heart failure or significant lower extremity edema. Currently is trace lower extremity edema and no major significant shortness breath. He was noted to have hyponatremia on presentation in the section improved with IV fluids. Patient has had some issues with generalized weakness. Unfortunately over the last week he has been having increased lower extremity weakness as well as some incontinence. He denies any trauma or inciting events. Denies any fevers or chills. He does have chronic shortness breath and is not overly active. EKG shows sinus rhythm with frequent PACs and nonspecific ST changes. CT showed coronary artery calcifications as well as mild cardiomegaly and mild interstitial edema correlate for mild CHF as well as ascending aortic aneurysm measuring 4.4 cm. REVIEW OF SYSTEMS At the time of my exam: CONSTITUTIONAL: Denies fever or chills. CARDIOVASCULAR: Denies chest pain, shortness of breath, orthopnea, PND or palpitations. RESPIRATORY: Denies cough. GASTROINTESTINAL: Denies abdominal pain, diarrhea, constipation, nausea or vomiting. MUSCULOSKELETAL: Denies myalgias. NEUROLOGIC: Denies numbness, tingling or weakness. ENDOCRINE: Denies fatigue, weight change, polydipsia or polyurina. GENITOURINARY: Denies burning, hematuria or urgency with micturation. HEMATOLOGIC: Denies history of anemia or bleeding. PHYSICAL EXAMINATION Vital signs reviewed. CONSTITUTIONAL: No apparent distress. HEENT: Head is normocephalic. Pupils are equal, round. Sclerae anicteric. Mucous membranes of the mouth are moist. No JVD. No carotid bruit. CHEST EXAMINATION: Lungs are clear to auscultation. No chest wall tenderness is noted on palpation or with deep breathing. HEART EXAMINATION: Regular rate and rhythm. S1, S2 heard. No murmurs, gallops or rub. ABDOMEN: Soft, nontender. Positive bowel sounds. EXTREMITIES: 2+ peripheral pulses, no lower extremity edema and no calf tenderness. NEUROLOGIC EXAMINATION: Patient is awake, alert and oriented x3. ASSESSMENT chronic diastolic heart failure, currently appears euvolemic Hypertension Lower extremity weakness appears more neurologic Coronary artery calcifications Danie body dementia ascending aortic aneurysm 4.4 cm PLAN patient's symptoms appear no more neurologic possibly neuropathy as well. Patient was found to have significant elevated BNP as well as mild changes of CAT scan. Not currently significantly short of breath and monitor for need for diuretics. His sodium actually was improved with IV fluids. better blood pressure control and added lisinopril 10 mg daily. Check orthostatics as his symptoms are exacerbated when he is standing. Further recommendations of follow-up. Check 2-D echo. Past Medical History Past Medical History: Hypertension History of Any Multi-Drug Resistant Organisms: None Reported Past Surgical History: Orthopedic Surgery Additional Past Surgical History / Comment(s): bilateral knee surgery, left hip surgery Past Psychological History: No Psychological Hx Reported Smoking Status: Never smoker Past Alcohol Use History: Occasional Past Drug Use History: None Reported Additional Drug Use History / Comment(s): few beers every once in a while Medications and Allergies Home Medications Medication Instructions Recorded Confirmed Type Amoxicillin 500 mg PO BID 09/18/23 09/18/23 History Aspirin EC [Ecotrin Low Dose] 81 mg PO DAILY 09/18/23 09/18/23 History Labetalol [Trandate] 200 mg PO TID 09/18/23 09/18/23 History Magnesium Oxide [Magox 400] 400 mg PO DAILY 09/18/23 09/18/23 History Temazepam [Restoril] 15 mg PO HS 09/18/23 09/18/23 History hydrALAZINE HCL [Apresoline] 50 mg PO BID 09/18/23 09/18/23 History traMADol HCl [Ultram] 50 mg PO HS PRN 09/18/23 09/18/23 History Allergies Allergy/AdvReac Type Severity Reaction Status Date / Time No Known Allergies Allergy Verified 09/18/23 08:14 Physical Exam Vitals: Vital Signs Temp Pulse Pulse Pulse Resp BP BP 09/19/23 12:22 98.2 F 78 16 164/81 09/19/23 07:21 98.3 F 75 16 182/79 09/19/23 03:52 99.3 F 78 16 167/72 09/18/23 23:05 98.3 F 78 18 171/88 09/18/23 20:00 98.8 F 70 16 179/97 09/18/23 16:52 178/80 09/18/23 14:17 98.7 F 77 17 162/93 Pulse Ox 09/19/23 12:22 93 L 09/19/23 07:21 93 L 09/19/23 03:52 94 L 09/18/23 23:05 95 09/18/23 20:00 94 L 09/18/23 16:52 09/18/23 14:17 97 Intake and Output 09/18/23 09/19/23 09/19/23 22:59 06:59 14:59 Intake Total 950 600 240 Output Total 300 Balance 650 600 240 Intake: Intake, IV Titration 950 600 Amount Sodium Chloride 0.9% 1, 900 600 000 ml @ 75 mls/hr IV . [id number] [facility] Rx#:[id number] cefTRIAXone 1 gm In 50 Sodium Chloride 0.9% 50 ml @ 100 mls/hr IVPB Q24HR [facility] Rx#:[id number] Oral 240 Output: Urine 300 Other: Voiding Method Diaper Diaper Incontinent # Voids 1 Weight 98.883 kg Results 09/19/23 05:56 09/19/23 05:56 Cardiac Enzymes 09/19/23 Range/Units 05:56 AST 19 (14-35) U/L CBC 09/19/23 Range/Units 05:56 WBC 7.52 (4.50-10.00) X 10*3/uL RBC 3.92 L (4.40-5.60) X 10*6/uL Hgb 12.7 L (13.0-17.0) g/dL Hct 37.1 L (39.6-50.0) % Plt Count 149 (140-440) X 10*3/uL Comprehensive Metabolic Panel 09/19/23 Range/Units 05:56 Sodium 133 L (135-145) mmol/L Potassium 3.7 (3.5-5.5) mmol/L Chloride 99 (96-109) mmol/L Carbon Dioxide 21.9 (21.6-31.8) mmol/L BUN 15.8 (9.0-27.0) mg/dL Creatinine 1.1 (0.6-1.5) mg/dL Glucose 83 (70-110) mg/dL Calcium 8.0 L (8.7-10.3) mg/dL AST 19 (14-35) U/L ALT 16 (10-49) U/L Alkaline Phosphatase 65 (41-126) U/L Total Protein 5.4 L (6.2-8.2) g/dL Albumin 3.6 L (3.8-4.9) g/dL Current Medications Generic Name Dose Route Start Last Admin Trade Name Freq PRN Reason Stop Dose Admin Acetaminophen 650 mg 09/18/23 01:04 Acetaminophen Tab 325 Mg Tab PO Q6HR PRN Mild Pain or Fever > 100.5 Aspirin 81 mg 09/18/23 17:30 09/19/23 08:28 Aspirin 81 Mg PO 81 mg DAILY ROSY Administration Hydralazine HCl 50 mg 09/18/23 11:15 09/19/23 08:28 Hydralazine Hcl 50 Mg Tab PO 50 mg BID ROSY Administration Sodium Chloride 1,000 mls @ 75 mls/hr 09/18/23 01:15 09/19/23 05:26 Saline 0.9% IV 75 mls/hr .[id number] ROSY Administration Ceftriaxone Sodium 1 gm/ 50 mls @ 100 mls/hr 09/18/23 18:00 09/19/23 08:28 Sodium Chloride IVPB 100 mls/hr Q24HR ROSY Administration Protocol Azithromycin 500 mg/ Sodium 250 mls @ 250 mls/hr 09/18/23 18:00 09/19/23 10:45 Chloride IVPB 09/20/23 09:59 250 mls/hr DAILY ROSY Administration Protocol Labetalol HCl 200 mg 09/18/23 11:15 09/19/23 10:44 Labetalol 200 Mg Tab PO 200 mg TID ROSY Administration Magnesium Oxide 400 mg 09/19/23 09:00 09/19/23 08:28 Magnesium Oxide 400 Mg Tab PO 400 mg DAILY ROSY Administration Miscellaneous Information 1 each 09/18/23 17:49 Rx Info: Iv Contrast Was Given 1 Each Misc MISCELLANE 09/20/23 17:49 DAILY PRN Per Protocol Naloxone HCl 0.2 mg 09/18/23 01:04 Naloxone 0.4 Mg/Ml 1 Ml Vial IV Q2M PRN Opioid Reversal Ondansetron HCl 4 mg 09/18/23 01:04 Ondansetron 4 Mg/2 Ml Vial IVP Q8HR PRN Nausea And Vomiting Temazepam 15 mg 09/18/23 21:00 09/18/23 22:32 Temazepam 15 Mg Cap PO 15 mg HS ROSY Administration Tramadol HCl 50 mg 09/18/23 17:25 Tramadol 50 Mg Tab PO HS PRN Pain Intake and Output 09/18/23 09/19/23 09/19/23 22:59 06:59 14:59 Intake Total 950 600 240 Output Total 300 Balance 650 600 240 Intake: Intake, IV Titration 950 600 Amount Sodium Chloride 0.9% 1, 900 600 000 ml @ 75 mls/hr IV . [id number] [facility] Rx#:[id number] cefTRIAXone 1 gm In 50 Sodium Chloride 0.9% 50 ml @ 100 mls/hr IVPB Q24HR [facility] Rx#:[id number] Oral 240 Output: Urine 300 Other: Voiding Method Diaper Diaper Incontinent # Voids 1 Weight 98.883 kg 09/19/23 05:56 09/19/23 05:56
--- NOTE | 2023-09-19 15:19 | P.PN ---
Subjective Progress Note Date: 09/19/23 I am seeing the patient for the first time during this admission. Please refer to Dr. Brand's note for further details. History is obtained from the patient and daughter who are bedside. It seems that the patient has unsteady gait with frequent falls and has tremor mostly with action and was evaluated by neurology team over in [place] and had an extensive workup including DaTscan and was told possibly he has parkinsonism. Patient was placed on Sinemet and not improvement in symptoms in past and was discontinued off them. Per family members it seems the patient has worsening of his generalized weakness but it was felt the right side was weaker than baseline in the past 1 week. Objective - Vital Signs Vital signs: Vital Signs Temp 98.2 F 09/19/23 12:22 Pulse 78 09/19/23 12:22 Resp 16 09/19/23 12:22 BP 164/81 09/19/23 12:22 Pulse Ox 93 L 09/19/23 12:22 FiO2 Intake & Output 09/18/23 09/19/23 09/19/23 18:59 06:59 18:59 Intake Total 950 600 240 Output Total 300 Balance 650 600 240 Weight 98.883 kg Intake: Intake, IV Titration 950 600 Amount Sodium Chloride 0.9% 1, 900 600 000 ml @ 75 mls/hr IV . [id number] [facility] Rx#:[id number] cefTRIAXone 1 gm In 50 Sodium Chloride 0.9% 50 ml @ 100 mls/hr IVPB Q24HR [facility] Rx#:[id number] Oral 240 Output: Urine 300 Other: Voiding Method External Catheter Diaper Diaper Incontinent # Voids 1 - Exam General: Lying in bed and is not in acute distress. Neuro: The patient is awake, alert, oriented to self, place and time. Is following simple commands. No aphasia. Pupils are round, equal and reactive to light. Visual crump are full to confrontation. No facial weakness. No dysathria. Motor: Lifting all extremities above gravity. Hard to assess individual muscle strength because of cooperation but does not appear focal weakness. - Labs CBC & Chem 7: 09/19/23 05:56 09/19/23 05:56 Labs: Abnormal Lab Results - Last 24 Hours (Table) 09/19/23 09/19/23 Range/Units 05:56 05:56 RBC 3.92 L (4.40-5.60) X 10*6/uL Hgb 12.7 L (13.0-17.0) g/dL Hct 37.1 L (39.6-50.0) % MCH 32.4 H (27.0-32.0) pg MPV 12.6 H (9.5-12.2) FL Lymphocytes # 0.84 L (0.90-5.00) X 10*3/uL Sodium 133 L (135-145) mmol/L Anion Gap 12.10 H (4.00-12.00) mmol/L Calcium 8.0 L (8.7-10.3) mg/dL Total Protein 5.4 L (6.2-8.2) g/dL Albumin 3.6 L (3.8-4.9) g/dL Assessment and Plan Assessment: * 83-year-old male presenting with 5-day history of progressive gait difficulty, now with inability to walk. Exact cause is uncertain. Examination is non focal. Patient has normal muscle strength, and his parkinsonism is stable. * Patient has low-grade fever on presentation, therefore an occult infection can make generalized weakness worse, particularly in a patient with neurodegenerative condition. * New onset incontinence, unclear cause. Examination is nonfocal. * Lewy body dementia * Hypertension Plan: * CT head was performed. It revealed age-related atrophic and chronic small vessel ischemic change, without acute intracranial process seen at this time. I personally reviewed CT head, agree with the findings. 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 * Pending MRI of the brain rule out CVA and per Dr. Brand If no obvious answers identified by MRI brain and other workup mentioned here, then will consider MRI of the cervical and lumbar spine. * CT of the chest with contrast: Mild cardiomegaly with prominent LAD and circumflex coronary artery calcification. Pulmonary arterial hypertension and scattered septal line with central interstitial thickening. Correlate for mild congestive heart failure with pulmonary vascular congestion. Flattening of bilateral mainstem bronchi with prominent respiratory motion. 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 * TSH: 2.05, A1c: 5.2. * PT OT evaluate gait. * Consider urology consultation for incontinence. * Will defer the rest of medical management to primary team and other specialist. * On discharge patient needs to follow-up with his neurologist as an outpatient. He follows up with the neurology team over in [place]. The plan is discussed with patient's family members who are bedside ( and daughter). Time with Patient: Less than 30
--- NOTE | 2023-09-19 15:25 | MR ---
EXAMINATION TYPE: MR brain wo con DATE OF EXAM: 09/19/2023 COMPARISON: None HISTORY: Weakness, falls, incontinence CONTRAST: Performed utilizing 0 mL intravenous Gadavist gadolinium contrast. TECHNIQUE: Multiplanar, multiecho imaging on a 3.0 Supriya magnet is performed through the brain. Stud y is performed within 24 hours of arrival to the hospital. The craniovertebral junction is normal. The pituitary is normal. Diffusion-weighted imaging is performed. No abnormal hyperintensity is present to suggest an acute i ntracranial infarct or acute ischemic change. There is confluent periventricular white matter hypodensity compatible with microvascular ischemic ch soraida. On T1-weighted sequences there is some blooming artifact within the thalami and left basal gang susy and a few scattered areas within the subcortical white matter. Small amount of old hemorrhage or ischemic change could be considered. Ventricles and sulci are somewhat prominent for the patient age. There is increased signal within the right mastoid air cells compatible some mild mastoiditis. IMPRESSION: 1. No acute intracranial process. 2. Confluent periventricular white matter hypodensity, likely on the basis of chronic white matter is chemic change. 3. Scattered small areas of blooming artifact may represent some vascular malformations or tiny ische gaby areas within the brain
[2023-09-19] MEDS: lisinopriL 10 MG TAB PO SCH (15:42)
--- NOTE | 2023-09-19 15:52 | P.CNPUL ---
History of Present Illness Consult date: 09/19/23 Requesting physician: Camille Patino Reason for consult: dyspnea, abnormal CXR/CT, other Chief complaint: Weakness, urinary incontinence, lower extremity edema. History of present illness: Pulmonary consult dated September 19, 2023. 83-year-old male who presented to the emergency department on September 16, complaining of weakness. Apparently had not been doing well for a couple of weeks, according to family members. He has developed some lower extremity edema as well as some weakness in the lower extremities, low-grade fever, incontinence, and generally not feeling well. He does get some shortness of breath, when he exerts himself. He apparently has a history of dementia, and hypertension. He sees a regular doctor down in [place]. He also has a history of hyperlipidemia as he takes Pravachol. His other medications include aspirin, diltiazem, pravastatin, clonidine, and hydrochlorothiazide. According to his family members, he may have Lewy body dementia. Current labs include a white count 7.5, hemoglobin 12.7, hematocrit 37.1, and platelet count of 149,000. Sodium 133, potassium 3.7, chloride 79, CO2 22, BUN 16 and creatinine 1.1. Calcium is 8. Total protein 5.4. N-terminal proBNP is 5570. Testing for influenza, RSV, coronavirus were all negative. Chest x-ray in my opinion, shows cardiomegaly, and mild fluid overload. Chest CT shows cardiomegaly, pulmonary arterial hypertension, and mild CHF with pulmonary vascular congestion. Review of Systems REVIEW OF SYSTEMS: CONSTITUTIONAL: Weakness. NEUROLOGIC: Dementia. HEENT: [ Negative.] CARDIAC: [Negative.] PULMONARY: Shortness of breath on exertion. GI: [Negative.] : Urinary incontinence. RHEUMATOLOGIC: [ Negative.] IMMUNOLOGIC: [ Negative.] ENDOCRINE: [Negative. ] DERMATOLOGIC: [Negative.] Past Medical History Past Medical History: Hypertension History of Any Multi-Drug Resistant Organisms: None Reported Past Surgical History: Orthopedic Surgery Additional Past Surgical History / Comment(s): bilateral knee surgery, left hip surgery Past Psychological History: No Psychological Hx Reported Smoking Status: Never smoker Past Alcohol Use History: Occasional Past Drug Use History: None Reported Additional Drug Use History / Comment(s): few beers every once in a while Medications and Allergies Home Medications Medication Instructions Recorded Confirmed Type Amoxicillin 500 mg PO BID 09/18/23 09/18/23 History Aspirin EC [Ecotrin Low Dose] 81 mg PO DAILY 09/18/23 09/18/23 History Labetalol [Trandate] 200 mg PO TID 09/18/23 09/18/23 History Magnesium Oxide [Magox 400] 400 mg PO DAILY 09/18/23 09/18/23 History Temazepam [Restoril] 15 mg PO HS 09/18/23 09/18/23 History hydrALAZINE HCL [Apresoline] 50 mg PO BID 09/18/23 09/18/23 History traMADol HCl [Ultram] 50 mg PO HS PRN 09/18/23 09/18/23 History Allergies Allergy/AdvReac Type Severity Reaction Status Date / Time No Known Allergies Allergy Verified 09/18/23 08:14 Physical Exam Osteopathic Statement: *. No significant issues noted on an osteopathic structural exam other than those noted in the History and Physical/Consult. Vitals: Vital Signs Temp Pulse Pulse Resp BP Pulse Ox 09/19/23 12:22 98.2 F 78 16 164/81 93 L 09/19/23 07:21 98.3 F 75 16 182/79 93 L 09/19/23 03:52 99.3 F 78 16 167/72 94 L 09/18/23 23:05 98.3 F 78 18 171/88 95 09/18/23 20:00 98.8 F 70 16 179/97 94 L 09/18/23 16:52 178/80 Intake and Output 09/19/23 09/19/23 09/19/23 06:59 14:59 22:59 Intake Total 600 240 Balance 600 240 Intake: Intake, IV Titration 600 Amount Sodium Chloride 0.9% 1, 600 000 ml @ 75 mls/hr IV . [id number] [facility] Rx#:[id number] Oral 240 Other: Voiding Method Diaper Diaper Incontinent # Voids 1 Weight 98.883 kg No acute distress, oriented 3. No respiratory distress. Currently on room air. HEENT examination is grossly unremarkable. Mucous membranes are moist. No oral lesions. Neck supple. Full range of motion. No adenopathy thyromegaly or neck vein distention. Cardiovascular examination reveals regular rhythm rate. S1-S2 normal. No S3 or S4. No discernible murmur noted. Heart rate 78 bpm. Lungs reveal mostly clear breath sounds. Minimal crackles. No wheezes or rhonchi. Breath sounds are equal. Abdomen soft bowel sounds are heard. No masses or tenderness. Extremities are intact. No cyanosis or clubbing. Trace edema. Skin is without rash or lesion. Neurologic examination is brief but nonfocal. Results - Laboratory Findings CBC and BMP: 09/19/23 05:56 09/19/23 05:56 PT/INR, D-dimer PT 11.3 sec (10.0-12.5) 09/17/23 23:33 INR 1.0 (<1.2) 09/17/23 23:33 Abnormal lab findings: Abnormal Labs 09/17/23 09/17/23 09/18/23 23:33 23:33 01:49 RBC 3.99 L Hgb Hct MCH Plt Count 140 L MPV Lymphocytes # 0.8 L Sodium 130 L Anion Gap BUN 30 H Glucose 103 H Calcium Total Protein 5.9 L Albumin Urine Protein 1+ H Urine Ketones Trace H Urine Mucus Rare H 09/19/23 09/19/23 05:56 05:56 RBC 3.92 L Hgb 12.7 L Hct 37.1 L MCH 32.4 H Plt Count MPV 12.6 H Lymphocytes # 0.84 L Sodium 133 L Anion Gap 12.10 H BUN Glucose Calcium 8.0 L Total Protein 5.4 L Albumin 3.6 L Urine Protein Urine Ketones Urine Mucus - Diagnostic Findings Chest x-ray: image reviewed CT scan - chest: image reviewed Assessment and Plan Assessment: Weakness, shortness of breath on exertion, and mild lower extremity edema, most likely consistent with congestive heart failure. No significant history of intrinsic pulmonary disease at this time. Longstanding hypertension. Lifelong non-smoker. History of Lewy body dementia. Plan: Plan dated September 19, 2023. The patient is seen, and examined. We speak to the family members including the and daughter. The patient apparently has a history of longstanding hypertension, and may have Lewy body dementia. The patient presents with weeks worth of increasing weakness, urinary incontinence, shortness of breath on exertion, and mild lower extremity edema. The patient was seen by cardiology and they suspect diastolic CHF. There does not appear to be any intrinsic pulmonary disease at this time. Labs, x-rays, medications are reviewed. The patient is a lifelong non-smoker. Time with Patient: Greater than 30
[2023-09-20] MEDS: hydrALAZINE HCL 20 MG/ML 1 ML VIAL IVP PRN (01:43)
[2023-09-20] MEDS: traMADol 50 MG TAB PO PRN (03:08)
[2023-09-20] MEDS: lisinopriL 10 MG TAB PO STA (10:30)
--- NOTE | 2023-09-20 10:39 | CA ---
Transthoracic Echo Report Name: Gold Tsang Age: 83 Gender: M : 1940 Exam Date: 09/19/2023 14:35 Exam Location: [facility] Ht (in): 72 Wt (lb): 218 Ordering Physician: Camille Patino MD Attending/Referring Phys: Tawer Rufina [place] RDCS Procedure CPT: Indications: dyspnea Cardiac Hx: Technical Quality: Fair Contrast 1: Definity Total Dose (mL): 2 Contrast 2: Total Dose (mL): MEASUREMENTS (Male / Female) Normal Values 2D ECHO LV Diastolic Diameter PLAX 5.2 cm 4.2 - 5.9 / 3.9 - 5.3 cm LV Systolic Diameter PLAX 4.3 cm IVS Diastolic Thickness 1.1 cm 0.6 - 1.0 / 0.6 - 0.9 cm LVPW Diastolic Thickness 1.2 cm 0.6 - 1.0 / 0.6 - 0.9 cm LV Relative Wall Thickness 0.4 RV Internal Dim ED PLAX 2.2 cm LA Systolic Diameter LX 4.4 cm 3.0 - 4.0 / 2.7 - 3.8 cm LV Diastolic Volume MOD BP 133.3 cm??? 67 - 155 / 56 - 104 cm??? LV Systolic Volume MOD BP 83.3 cm??? 22 - 58 / 19 - 49 cm??? LV Ejection Fraction MOD BP 37.5 % >= 55 % LV Cardiac Index MOD BP 1745.8 cm???/min???m??? LV Diastolic Volume MOD 4C 124.4 cm??? LV Systolic Volume MOD 4C 83.2 cm??? LV Ejection Fraction MOD 4C 33.1 % LV Cardiac Index MOD 4C 1437.1 cm???/min???m??? LV Diastolic Length 4C 8.7 cm LV Systolic Length 4C 7.7 cm LV Diastolic Volume MOD 2C 135.9 cm??? LV Systolic Volume MOD 2C 84.8 cm??? LV Ejection Fraction MOD 2C 37.7 % LV Cardiac Index MOD 2C 1787.1 cm???/min???m??? LV Diastolic Length 2C 9.2 cm LV Systolic Length 2C 8.1 cm M-MODE Aortic Root Diameter MM 3.5 cm LA Systolic Diameter MM 4.2 cm LA Ao Ratio MM 1.2 AV Cusp Separation MM 1.6 cm DOPPLER AV Peak Velocity 201.6 cm/s AV Peak Gradient 16.3 mmHg AV Mean Velocity 155.1 cm/s AV Mean Gradient 10.3 mmHg AV Velocity Time Integral 35.8 cm AI Peak Velocity 276.0 cm/s AI Peak Gradient 30.5 mmHg AI Pressure Half Time 905.8 ms LVOT Peak Velocity 105.4 cm/s LVOT Peak Gradient 4.4 mmHg LVOT Velocity Time Integral 20.9 cm Mitral E Point Velocity 72.2 cm/s Mitral A Point Velocity 109.2 cm/s Mitral E to A Ratio 0.7 MV Deceleration Time 287.2 ms MV E' Velocity 3.4 cm/s Mitral E to MV E' Ratio 20.9 FINDINGS Left Ventricle Left ventricular ejection fraction is estimated at 35 %. Severely increased left ventricular systolic volume. Moderately decreased left ventricular ejection fraction. Moderately reduced global left ventricular systolic function. Right Ventricle Normal right ventricular size and function. Unable to estimate the right ventricular systolic pressure. Right Atrium Mild right atrial dilatation. Left Atrium Mildly increased left atrial diameter. Mitral Valve Structurally normal mitral valve. Wtso-fu-swvilned mitral regurgitation. Aortic Valve Trileaflet aortic valve. Diffuse thickening (sclerosis) of the aortic valve cusps without reduced excursion. Trace aortic regurgitation. Tricuspid Valve Structurally normal tricuspid valve. Trace tricuspid regurgitation. Pulmonic Valve Structurally normal pulmonic valve. Trace pulmonic regurgitation. No pulmonic stenosis. Pericardium No pericardial or pleural effusion. Aorta Normal size aortic root and proximal ascending aorta. CONCLUSIONS Left ventricular ejection fraction 35% Global hypokinesis Mild to moderate mitral regurgitation Aortic valve sclerosis without significant stenosis Trace aortic regurgitation Trace tricuspid regurgitation No pericardial effusion Previewed by: Dr. Sadiq Corado DO (Electronically Signed) Final Date: 20 September 2023 10:39
[2023-09-20 10:50] LABS: Basophils # (A) 0.07 X 10*3/uL (0.00-0.10); Basophils % (A) 0.8 %; Eosinophils # (A) 0.34 X 10*3/uL (0.04-0.35); Eosinophils % (A) 3.8 %; HCT 39.1 % (39.6-50.0); HGB 13.3 g/dL (13.0-17.0); Lymphocytes # (A) 0.91 X 10*3/uL (0.90-5.00); Lymphocytes % (A) 10.1 %; MCH 32.1 pg (27.0-32.0); MCV 94.4 FL (80.0-97.0); Mean Platelet Volume 12.6 FL (9.5-12.2); Monocytes # (A) 0.74 X 10*3/uL (0.20-1.00); Monocytes % (A) 8.2 %; NRBC Per 100 WBC 0 X 10*3/uL (0.00-0.01); Neutrophils # (A) 6.86 X 10*3/uL (1.80-7.70); Neutrophils % (A) 76.5 %; Platelet Count 171 X 10*3/uL (140-440); RBC 4.14 X 10*6/uL (4.40-5.60); RDW 13.8 % (11.5-14.5); WBC 8.97 X 10*3/uL (4.50-10.00)
--- NOTE | 2023-09-20 11:01 | P.PN ---
Subjective Progress Note Date: 09/20/23 Gold Tsang, is an 83-year-old male who presented to [facility] emergency room with a chief complaint of worsening generalized weakness, and urinary incontinence, symptoms started about 1 week ago and has been worsening, patient was seen and examined in the emergency room, his and daughter at the bedside, they state that he was in his usual state of health until about 1 week ago where he started having worsening weakness, and had several episodes of urinary incontinence, they state that he was diagnosed with possible Parkinson disease about 1 year ago he was tried on Sinemet without any significant improvement and that was discontinued, a possible diagnosis of Lewy body dementia was entertained, family also stated that 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 He was ealuated in the emergency room vital examination on presentation revealed 100.3 pulse 68 respiration 22 blood pressure 168/90 pulse ox 95% on room air Laboratory data revealed a white blood count of 7.6 hemoglobin 13.1 platelet count 140 sodium 130 BUN 30 creatinine 1.19 BNP 5570 Testing in the emergency room revealed CT scan of the brain revealed age-related atrophic and chronic small vessel ischemic change without acute intracranial process, CT scan of the lumbar spine revealed no acute fracture, chest x-ray revealed cardiomegaly with bibasilar opacities Patient was admitted to medical floor for further evaluation and treatment On 09/19/2023 patient is currently resting comfortably in bed. MRI of the brain has been ordered per neurology. Patient having abnormal CT scan of chest will consult pulmonary services and procalcitonin level. At this time patient denies chest pain or shortness of breath. Patient denies nausea vomiting or diarrhea. Patient denies any urinary burning or frequency. On 09/20/2023 patient is currently sitting up in chair. Family at bedside. Awaiting urology consult awaiting neurology consult for urinary incontinence. Neurology cardiology and pulmonary services are following. PT OT consulted. Patient will possibly need rehab upon discharge. Patient denies chest pain or shortness of breath. Patient denies nausea vomiting or diarrhea. Patient denies any urinary burning or frequency Objective - Vital Signs Vital signs: Vital Signs Temp 97.4 F L 09/20/23 07:25 Pulse 84 09/20/23 08:25 Resp 16 09/20/23 07:25 BP 189/91 09/20/23 08:25 Pulse Ox 95 09/20/23 07:25 FiO2 Intake & Output 09/19/23 09/20/23 09/20/23 18:59 06:59 18:59 Intake Total 1320 Balance 1320 Intake: Oral 1320 Other: Voiding Method Diaper Diaper Diaper Incontinent Incontinent # Voids 3 2 - Exam In general patient is alert and oriented x 3 in no distress HEENT head normocephalic and atraumatic Neck is supple no JVD no goiter no lymphadenopathy no carotid bruit Chest examination is clear to auscultation no crackles no wheezing Cardiac exam reveals regular heart sounds S1 and S2 no gallops no murmurs Abdomen is soft nontender no organomegaly with normal bowel sounds Extremity exam reveals no edema no cyanosis or clubbing Neurological examination reveals no gross focal deficits - Labs CBC & Chem 7: 09/20/23 05:49 09/19/23 05:56 Labs: Abnormal Lab Results - Last 24 Hours (Table) 09/19/23 09/19/23 Range/Units 05:56 05:56 RBC 3.92 L (4.40-5.60) X 10*6/uL Hgb 12.7 L (13.0-17.0) g/dL Hct 37.1 L (39.6-50.0) % MCH 32.4 H (27.0-32.0) pg MPV 12.6 H (9.5-12.2) FL Lymphocytes # 0.84 L (0.90-5.00) X 10*3/uL Sodium 133 L (135-145) mmol/L Anion Gap 12.10 H (4.00-12.00) mmol/L Calcium 8.0 L (8.7-10.3) mg/dL Total Protein 5.4 L (6.2-8.2) g/dL Albumin 3.6 L (3.8-4.9) g/dL Assessment and Plan Plan: Generalized weakness, with difficulty standing and walking Febrile illness, possible pneumonia with bibasilar opacities on chest x-ray. Patient was evaluated by pulmonary services Chronic diastolic congestive heart failure Recent onset of urinary incontinence. Urology services consulted. Urology service is consulted Underlying history of possible Lewy body dementia Underlying history of possible Parkinson disease Underlying history of hypertension At this time patient was seen and examined Home medications reviewed and reordered MRI of the brain ordered per neurology For DVT prophylaxis subcu Lovenox PT OT and social work services consulted for discharge planning patient may need ECF upon discharge Will follow in a.m.
[2023-09-20 11:02] LABS: BUN/Creat Ratio 15.55 Ratio (12.00-20.00); Blood Urea Nitrogen 17.1 mg/dL (9.0-27.0); Chloride 98 mmol/L (96-109); Glucose 97 mg/dL (70-110); Potassium 3.8 mmol/L (3.5-5.5); Sodium 132 mmol/L (135-145)
[2023-09-20 11:03] LABS: ALT 15 U/L (10-49); AST 16 U/L (14-35); Albumin 3.6 g/dL (3.8-4.9); Alkaline Phosphatase 67 U/L (41-126); Calcium 8.1 mg/dL (8.7-10.3); Carbon Dioxide 21.4 mmol/L (21.6-31.8); Globulin 1.8 g/dL (1.6-3.3); Total Bilirubin 0.5 mg/dL (0.3-1.2); Total Protein 5.4 g/dL (6.2-8.2)
--- NOTE | 2023-09-20 11:24 | P.PN ---
Subjective Progress Note Date: 09/20/23 I am following up with the patient and he is accompanied with his and daughter. Patient daughter got a hold of his DaTscan that was performed in [place] in 2020 and it shows abnormal possibly suggestive of Parkinson's. Per family members it seems that the patient follows up with a movement disorder specialist over in [place]. Patient today is doing better compared to initial presentation and he is walking better with therapy. No new neurological issues. Objective - Vital Signs Vital signs: Vital Signs Temp 97.4 F L 09/20/23 07:25 Pulse 84 09/20/23 08:25 Resp 16 09/20/23 07:25 BP 189/91 09/20/23 08:25 Pulse Ox 95 09/20/23 07:25 FiO2 Intake & Output 09/19/23 09/20/23 09/20/23 18:59 06:59 18:59 Intake Total 1320 Balance 1320 Intake: Oral 1320 Other: Voiding Method Diaper Diaper Diaper Incontinent Incontinent # Voids 3 2 - Exam General: Sitting up in a recliner chair and is not in acute distress. Neuro: The patient is awake, alert, oriented to self, place and time. Is following simple commands. No aphasia. Pupils are round, equal and reactive to light. Visual crump are full to confrontation. No facial weakness. No dysathria. Motor: Gait: Used walker and is able to stand up on own. Has slow movement of gait and taking small steps, having shuffling gait but not swaying towards one side or other. Strength uppers are 5/5 and lowers appear normal bilaterally. No resting tremors. Mild to moderate increase tone at bilateral wrist. - Labs CBC & Chem 7: 09/20/23 05:49 09/20/23 05:49 Labs: Abnormal Lab Results - Last 24 Hours (Table) 09/20/23 09/20/23 Range/Units 05:49 05:49 RBC 4.14 L (4.40-5.60) X 10*6/uL Hct 39.1 L (39.6-50.0) % MCH 32.1 H (27.0-32.0) pg MPV 12.6 H (9.5-12.2) FL Immature Gran # 0.05 H (0.00-0.04) X 10*3/uL Sodium 132 L (135-145) mmol/L Carbon Dioxide 21.4 L (21.6-31.8) mmol/L Anion Gap 12.60 H (4.00-12.00) mmol/L Calcium 8.1 L (8.7-10.3) mg/dL Total Protein 5.4 L (6.2-8.2) g/dL Albumin 3.6 L (3.8-4.9) g/dL Assessment and Plan Assessment: * 83-year-old male presenting with 5-day history of progressive gait difficulty, now with inability to walk. Exact cause is uncertain. Examination is nonfocal. Patient has normal muscle strength, and his parkinsonism is stable---currently improving compared to presentation per family members. * Patient has low-grade fever on presentation, therefore an occult infection can make generalized weakness worse, particularly in a patient with pipe rodegenerative condition. * New onset incontinence, unclear cause. Examination is nonfocal. * Lewy body dementia * Hypertension Plan: * CT head was performed. It revealed age-related atrophic and chronic small vessel ischemic change, without acute intracranial process seen at this time. I personally reviewed CT head, agree with the findings. 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 * MRI of the brain: No acute intracranial process. Confluent periventricular white matter hypodensity, likely on the basis of chronic white matter ischemic change. Scattered small area of blooming artifact may represent some vascular malformation or tiny ischemic area within the brain. Per Dr. Brand If no obvious answers identified by MRI brain and other workup mentioned here, then will consider MRI of the cervical and lumbar spine. I spoke with the patient's family members and they want to hold off on any spinal imaging since the patient's condition is improving and patient denies of any neck or low back pain. Will consider this as an outpatient if needed. * CT of the chest with contrast: Mild cardiomegaly with prominent LAD and circumflex coronary artery calcification. Pulmonary arterial hypertension and scattered septal line with central interstitial thickening. Correlate for mild congestive heart failure with pulmonary vascular congestion. Flattening of bilateral mainstem bronchi with prominent respiratory motion. 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 * TSH: 2.05, A1c: 5.2. * PT OT evaluate gait. * Consider urology consultation for incontinence. * Will defer the rest of medical management to primary team and other specialist. * Upon discharge patient needs to follow-up with his neurologistas outpatient within 2-3 weeks. He follows-up with Movement Disorder Specialist in [place]. The plan is discussed with patient's family members who are bedside ( and daughter) as well his nurse. There is no further neurological work-up. Will sign off. Please reconsult if needed. Time with Patient: Less than 30
--- NOTE | 2023-09-20 12:55 | P.PN ---
Subjective HISTORY OF PRESENT ILLNESS: This is a pleasant 83-year-old with past medical history significant for hypertension, Teddy body dementia, possible Parkinson's disease. Patient does not follow with a application systems engineer locally however follows with a application systems engineer in [place]. He states he has not had any significant major cardiac history with prior testing including stress tests and echoes in the past been fairly unremarkable. Cardiology was consult that secondary to CHF. Patient denies any history of heart failure or significant lower extremity edema. Currently is trace lower extremity edema and no major significant shortness breath. He was n oted to have hyponatremia on presentation in the section improved with IV fluids. Patient has had some issues with generalized weakness. Unfortunately over the last week he has been having increased lower extremity weakness as well as some incontinence. He denies any trauma or inciting events. Denies any fevers or chills. He does have chronic shortness breath and is not overly active. EKG sh ows sinus rhythm with frequent PACs and nonspecific ST changes. CT showed coronary artery calcifications as well as mild cardiomegaly and mild interstitial edema correlate for mild CHF as well as ascending aortic aneurysm measuring 4.4 cm. 09/20/2023 Patient examined this morning. Patient is sitting up in the chair. Patient's and daughter are present. The patient currently denies any chest pain or pressure. He denies any shortness of breath. He continues to report weakness in his lower extremities. The patient's daughter does state he was able to ambulate some today which she was unable to do previously. Patient's blood pressures are significantly elevated this morning with a systolic greater than 180. PHYSICAL EXAM: VITAL SIGNS: Reviewed. GENERAL: Well-developed in no acute distress. NECK: Supple. No JVD or thyromegaly LUNGS: Respirations even and unlabored. Lungs essentially clear to auscultation bilaterally. HEART: Regular rate and rhythm. S1 and S2 heard. EXTREMITIES: Normal range of motion. No clubbing or cyanosis. Peripheral pulses intact. No lower extremity edema ASSESSMENT: Chronic heart failure with suspected preserved EF, echo pending, currently euvo lemic Hypertension Lower extremity weakness appears more neurologic Coronary artery calcifications Lewy body dementia Ascending aortic aneurysm 4.4 cm Possible history of Parkinson's disease New onset urinary incontinence PLAN: 2D echo has been ordered. Await results. Continue current cardiac medications Increase lisinopril to 40 mg daily for optimal blood pressure control Clinically, the patient is not requiring diuretics Await further recommendations from neurology Further recommendations pending patient course Nurse practitioner note has been reviewed by physician. Signing provider agrees with the documented findings, assessment, and plan of care documented by CORE DROPPER as a scribe. Objective - Vital Signs Vital signs: Vital Signs Temp 97.4 F L 09/20/23 07:25 Pulse 84 09/20/23 08:25 Resp 16 09/20/23 07:25 BP 189/91 09/20/23 08:25 Pulse Ox 95 09/20/23 07:25 FiO2 Intake & Output 09/19/23 09/20/23 09/20/23 18:59 06:59 18:59 Intake Total 1320 237 Balance 1320 237 Intake: Oral 1320 237 Other: Voiding Method Diaper Diaper Diaper Incontinent Incontinent # Voids 3 2 - Labs CBC & Chem 7: 09/20/23 05:49 09/20/23 05:49 Labs: Abnormal Lab Results - Last 24 Hours (Table) 09/20/23 09/20/23 Range/Units 05:49 05:49 RBC 4.14 L (4.40-5.60) X 10*6/uL Hct 39.1 L (39.6-50.0) % MCH 32.1 H (27.0-32.0) pg MPV 12.6 H (9.5-12.2) FL Immature Gran # 0.05 H (0.00-0.04) X 10*3/uL Sodium 132 L (135-145) mmol/L Carbon Dioxide 21.4 L (21.6-31.8) mmol/L Anion Gap 12.60 H (4.00-12.00) mmol/L Calcium 8.1 L (8.7-10.3) mg/dL Total Protein 5.4 L (6.2-8.2) g/dL Albumin 3.6 L (3.8-4.9) g/dL
--- NOTE | 2023-09-20 14:45 | P.PN ---
Subjective Progress Note Date: 09/20/23 83-year-old male who presented to the emergency department on September 16, complaining of weakness. Apparently had not been doing well for a couple of weeks, according to family members. He has developed some lower extremity edema as well as some weakness in the lower extremities, low-grade fever, incontine nce, and generally not feeling well. He does get some shortness of breath, when he exerts himself. He apparently has a history of dementia, and hypertension. He sees a regular doctor down in [place]. He also has a history of hyperlipidemia as he takes Pravachol. His other medications include aspirin, diltiazem, pravastatin, clonidine, and hydrochlorothiazide. According to his family members, he may have Lewy body dementia. Current labs include a white count 7.5, hemoglobin 12.7, hematocrit 37.1, and platelet count of 149,000. Sodium 133, potassium 3.7, chloride 79, CO2 22, BUN 16 and creatinine 1.1. Calcium is 8. Total protein 5.4. N-terminal proBNP is 5570. Testing for influenza, RSV, coronavirus were all negative. Chest x-ray in my opinion, shows cardiomegaly, and mild fluid overload. Chest CT shows cardiomegaly, pulmonary arterial hypertension, and mild CHF with pulmonary vascular congestion. The patient is seen today September 20, 2023 in follow-up on the regular medical floor. He is currently sitting up in a chair. Awake and alert in no acute distress. Feeling a bit better today compared to yesterday. He is quite weak. MRI of the brain revealed no acute intracranial process. White count 8.9. Hemoglobin 13.3. Platelets 171. Sodium 132. Potassium 3.8. Bicarb 21. BUN 17. Creatinine 1.1. Glucose 97. He is continued on Symbicort. His procalcitonin was 0.08. Antibiotics discontinued. Objective - Vital Signs Vital signs: Vital Signs Temp 98.0 F 09/20/23 12:37 Pulse 67 09/20/23 12:37 Resp 15 09/20/23 12:37 BP 127/75 09/20/23 12:37 Pulse Ox 97 09/20/23 12:37 FiO2 Intake & Output 09/19/23 09/20/23 09/20/23 18:59 06:59 18:59 Intake Total 1320 474 Balance 1320 474 Intake: Oral 1320 474 Other: Voiding Method Diaper Diaper Diaper Incontinent Incontinent # Voids 3 2 - Exam GENERAL EXAM: Alert, pleasant 83-year-old male patient, on room air, up in a chair, comfortable in no apparent distress. HEAD: Normocephalic. EYES: Normal reaction of pupils, equal size. NOSE: Clear with pink turbinates. THROAT: No erythema or exudates. NECK: No masses, no JVD. CHEST: No chest wall deformity. LUNGS: Equal air entry with no crackles, wheeze, rhonchi or dullness. CVS: S1 and S2 normal with no audible murmur, regular rhythm. ABDOMEN: No hepatosplenomegaly, normal bowel sounds, no guarding or rigidity. SPINE: No scoliosis or deformity SKIN: No rashes CENTRAL NERVOUS SYSTEM: No focal deficits, tone is normal in all 4 extremities. EXTREMITIES: There is no peripheral edema. No clubbing, no cyanosis. Peripheral pulses are intact. - Labs CBC & Chem 7: 09/20/23 05:49 09/20/23 05:49 Labs: Abnormal Lab Results - Last 24 Hours (Table) 09/20/23 09/20/23 Range/Units 05:49 05:49 RBC 4.14 L (4.40-5.60) X 10*6/uL Hct 39.1 L (39.6-50.0) % MCH 32.1 H (27.0-32.0) pg MPV 12.6 H (9.5-12.2) FL Immature Gran # 0.05 H (0.00-0.04) X 10*3/uL Sodium 132 L (135-145) mmol/L Carbon Dioxide 21.4 L (21.6-31.8) mmol/L Anion Gap 12.60 H (4.00-12.00) mmol/L Calcium 8.1 L (8.7-10.3) mg/dL Total Protein 5.4 L (6.2-8.2) g/dL Albumin 3.6 L (3.8-4.9) g/dL Assessment and Plan Assessment: Weakness, shortness of breath on exertion, and mild lower extremity edema, most likely consistent with congestive heart failure. No significant history of intrinsic pulmonary disease at this time. Procalcitonin negative. Longstanding hypertension. Lifelong non-smoker. History of Lewy body dementia Parkinsonism Plan: The patient was seen and evaluated Labs and medications reviewed MRI of the brain reviewed Procalcitonin negative Antibiotics discontinued Continue Symbicort This patient was seen independently by the pulmonary nurse practitioner addressing pulmonary issues I have personally seen and examined the patient, performed the documentation and the assessment and plan as written. Number of minutes spent on the visit: 24.
[2023-09-20] MEDS: DOCUSATE 100 MG CAP PO SCH (18:01)
[2023-09-20] MEDS: SYMBICORT 160-4.5 MCG INHALER INHALATION SCH (20:39)
[2023-09-21] MEDS: lisinopriL 20 MG TAB PO SCH (08:37)
[2023-09-21 08:52] LABS: Basophils # (A) 0.07 X 10*3/uL (0.00-0.10); Basophils % (A) 0.7 %; Eosinophils % (A) 4.7 %; HCT 38.5 % (39.6-50.0); HGB 13.5 g/dL (13.0-17.0); Lymphocytes # (A) 0.83 X 10*3/uL (0.90-5.00); Lymphocytes % (A) 7.8 %; MCH 32.4 pg (27.0-32.0); MCHC 35.1 g/dL (32.0-37.0); MCV 92.3 FL (80.0-97.0); Mean Platelet Volume 12.2 FL (9.5-12.2); Monocytes # (A) 0.81 X 10*3/uL (0.20-1.00); Monocytes % (A) 7.6 %; NRBC Per 100 WBC 0 X 10*3/uL (0.00-0.01); Neutrophils # (A) 8.38 X 10*3/uL (1.80-7.70); Neutrophils % (A) 78.8 %; Platelet Count 175 X 10*3/uL (140-440); RBC 4.17 X 10*6/uL (4.40-5.60); RDW 13.8 % (11.5-14.5); WBC 10.63 X 10*3/uL (4.50-10.00)
[2023-09-21 08:56] LABS: BUN/Creat Ratio 17.73 Ratio (12.00-20.00); Blood Urea Nitrogen 19.5 mg/dL (9.0-27.0); Chloride 99 mmol/L (96-109); Glucose 107 mg/dL (70-110); Sodium 132 mmol/L (135-145)
[2023-09-21 08:57] LABS: ALT 13 U/L (10-49); AST 16 U/L (14-35); Albumin 3.5 g/dL (3.8-4.9); Albumin/Globulin Ratio 2.06 Ratio (1.60-3.17); Alkaline Phosphatase 66 U/L (41-126); Calcium 8.2 mg/dL (8.7-10.3); Globulin 1.7 g/dL (1.6-3.3); Total Bilirubin 0.5 mg/dL (0.3-1.2); Total Protein 5.2 g/dL (6.2-8.2)
--- NOTE | 2023-09-21 10:35 | P.PN ---
Subjective HISTORY OF PRESENT ILLNESS: This is a pleasant 83-year-old with past medical history significant for hypertension, Teddy body dementia, possible Parkinson's disease. Patient does not follow with a doctor of audiology locally however follows with a doctor of audiology in [place]. He states he has not had any significant major cardiac history with prior testing including stress tests and echoes in the past been fairly unremarkable. Cardiology was consult that secondary to CHF. Patient denies any history of heart failure or significant lower extremity edema. Currently is trace lower extremity edema and no major significant shortness breath. He was n oted to have hyponatremia on presentation in the section improved with IV fluids. Patient has had some issues with generalized weakness. Unfortunately over the last week he has been having increased lower extremity weakness as well as some incontinence. He denies any trauma or inciting events. Denies any fevers or chills. He does have chronic shortness breath and is not overly active. EKG sh ows sinus rhythm with frequent PACs and nonspecific ST changes. CT showed coronary artery calcifications as well as mild cardiomegaly and mild interstitial edema correlate for mild CHF as well as ascending aortic aneurysm measuring 4.4 cm. 09/20/2023 Patient examined this morning. Patient is sitting up in the chair. Patient's and daughter are present. The patient currently denies any chest pain or pressure. He denies any shortness of breath. He continues to report weakness in his lower extremities. The patient's daughter does state he was able to ambulate some today which she was unable to do previously. Patient's blood pressures are significantly elevated this morning with a systolic greater than 180. 09/20 patient seen and examined. Patient had felt somewhat better yesterday however today is feeling worse with continued lower extremity weakness and feels that his left leg is worse than his right. Initially recommendation was for outpatient workup for possible radiculopathy however this was yesterday when he was doing better. Blood pressure still remains elevated in the 160s 180s. Echo performed which shows EF 35%. Prior workup from [place] reviewed with the EF 4 0-45% at that time as well as 38% on prior Lexiscan stress test. Prior stress test showed no inducible ischemia. There is documentation of atrial fibrillation however apparently this was very similar to the current situation where there was an EKG that was read out as A. fib however no clear-cut A. fib and therefore no anticoagulation at been recommended. He has not had much of an appetite not eating or drinking much less he is forced. Family admits he does not do well in hospitals and this is part of why doesn't have an appetite. PHYSICAL EXAM: VITAL SIGNS: Reviewed. GENERAL: Well-developed in no acute distress. NECK: Supple. No JVD or thyromegaly LUNGS: Respirations even and unlabored. Lungs essentially clear to auscultation bilaterally. HEART: Regular rate and rhythm. S1 and S2 heard. EXTREMITIES: Normal range of motion. No clubbing or cyanosis. Peripheral pulses intact. No lower extremity edema ASSESSMENT: Chronic systolic heart failure Cardiomyopathy, known from [place] workup in March 2023 with EF in the 40% range. Assumed nonischemic with prior stress test negative Hypertension Lower extremity weakness appears more neurologic Coronary artery calcifications Lewy body dementia Ascending aortic aneurysm 4.4 cm Possible history of Parkinson's disease New onset urinary incontinence report of atrial fibrillation however none identified, PACs on EKG and prior mo nitor with no evidence of A. fib. PLAN: it appears the documentation of A. fib was likely overcall previously and the doctor of audiology did not recommended anticoagulation at that time and had worn a mon itor with no A. fib. Continue to monitor for any clear-cut A. fib however at this point continue to defer anticoagulation. Cardiomyopathy appears old and do not feel this is causing any of his current symptoms. Optimize heart failure regimen. Does not appear volume overloaded however add oral Lasix and monitor closely the patient not year drinking much. Objective - Vital Signs Vital signs: Vital Signs Temp 98.3 F 09/21/23 07:03 Pulse 85 09/21/23 07:03 Resp 16 09/21/23 07:03 BP 186/110 09/21/23 07:03 Pulse Ox 93 L 09/21/23 07:03 FiO2 Intake & Output 09/20/23 09/21/23 09/21/23 18:59 06:59 18:59 Intake Total 2154 Balance 2154 Intake: Intake, IV Titration 900 Amount Sodium Chloride 0.9% 1, 900 000 ml @ 75 mls/hr IV . [id number] [facility] Rx#:[id number] Oral 1254 Other: Voiding Method Diaper Diaper Incontinent Incontinent # Voids 3 2 # Bowel Movements 1 - Labs CBC & Chem 7: 09/21/23 05:53 09/21/23 05:53 Labs: Abnormal Lab Results - Last 24 Hours (Table) 09/20/23 09/20/23 09/21/23 Range/Units 05:49 05:49 05:53 WBC 10.63 H (4.50-10.00) X 10*3/uL RBC 4.14 L 4.17 L (4.40-5.60) X 10*6/uL Hct 39.1 L 38.5 L (39.6-50.0) % MCH 32.1 H 32.4 H (27.0-32.0) pg MPV 12.6 H (9.5-12.2) FL Immature Gran # 0.05 H (0.00-0.04) X 10*3/uL Neutrophils # 8.38 H (1.80-7.70) X 10*3/uL Lymphocytes # 0.83 L (0.90-5.00) X 10*3/uL Eosinophils # 0.50 H (0.04-0.35) X 10*3/uL Sodium 132 L (135-145) mmol/L Carbon Dioxide 21.4 L (21.6-31.8) mmol/L Anion Gap 12.60 H (4.00-12.00) mmol/L Calcium 8.1 L (8.7-10.3) mg/dL Total Protein 5.4 L (6.2-8.2) g/dL Albumin 3.6 L (3.8-4.9) g/dL 09/21/23 Range/Units 05:53 WBC (4.50-10.00) X 10*3/uL RBC (4.40-5.60) X 10*6/uL Hct (39.6-50.0) % MCH (27.0-32.0) pg MPV (9.5-12.2) FL Immature Gran # (0.00-0.04) X 10*3/uL Neutrophils # (1.80-7.70) X 10*3/uL Lymphocytes # (0.90-5.00) X 10*3/uL Eosinophils # (0.04-0.35) X 10*3/uL Sodium 132 L (135-145) mmol/L Carbon Dioxide (21.6-31.8) mmol/L Anion Gap (4.00-12.00) mmol/L Calcium 8.2 L (8.7-10.3) mg/dL Total Protein 5.2 L (6.2-8.2) g/dL Albumin 3.5 L (3.8-4.9) g/dL
--- NOTE | 2023-09-21 11:58 | P.PN ---
Subjective Progress Note Date: 09/21/23 83-year-old male who presented to the emergency department on September 16, complaining of weakness. Apparently had not been doing well for a couple of weeks, according to family members. He has developed some lower extremity edema as well as some weakness in the lower extremities, low-grade fever, incontine nce, and generally not feeling well. He does get some shortness of breath, when he exerts himself. He apparently has a history of dementia, and hypertension. He sees a regular doctor down in [place]. He also has a history of hyperlipidemia as he takes Pravachol. His other medications include aspirin, diltiazem, pravastatin, clonidine, and hydrochlorothiazide. According to his family members, he may have Lewy body dementia. Current labs include a white count 7.5, hemoglobin 12.7, hematocrit 37.1, and platelet count of 149,000. Sodium 133, potassium 3.7, chloride 79, CO2 22, BUN 16 and creatinine 1.1. Calcium is 8. Total protein 5.4. N-terminal proBNP is 5570. Testing for influenza, RSV, coronavirus were all negative. Chest x-ray in my opinion, shows cardiomegaly, and mild fluid overload. Chest CT shows cardiomegaly, pulmonary arterial hypertension, and mild CHF with pulmonary vascular congestion. The patient is seen today September 20, 2023 in follow-up on the regular medical floor. He is currently sitting up in a chair. Awake and alert in no acute distress. Feeling a bit better today compared to yesterday. He is quite weak. MRI of the brain revealed no acute intracranial process. White count 8.9. Hemoglobin 13.3. Platelets 171. Sodium 132. Potassium 3.8. Bicarb 21. BUN 17. Creatinine 1.1. Glucose 97. He is continued on Symbicort. His procalcitonin was 0.08. Antibiotics discontinued. The patient is seen today September 21, 2023 in follow-up on the regular medical floor. He is sitting up in bed. Awake and alert in no acute distress. He denies any shortness of breath cough or congestion. He is maintaining good O2 saturations in the 90s on room air. He is afebrile. Hemodynamically stable. He remains on Symbicort. Transitioned to oral diuretics. White count 10.6. Hemoglobin 13.5. Platelets 175. Sodium 132. Potassium 4.0. Bicarb 22. BUN 20. Creatinine 1.1. Glucose 107. Objective - Vital Signs Vital signs: Vital Signs Temp 98.3 F 09/21/23 07:03 Pulse 85 09/21/23 07:03 Resp 16 09/21/23 07:03 BP 186/110 09/21/23 07:03 Pulse Ox 93 L 09/21/23 07:03 FiO2 Intake & Output 09/20/23 09/21/23 09/21/23 18:59 06:59 18:59 Intake Total 2154 Balance 215 Intake: Intake, IV Titration 900 Amount Sodium Chloride 0.9% 1, 900 000 ml @ 75 mls/hr IV . [id number] [facility] Rx#:[id number] Oral 1254 Other: Voiding Method Diaper Diaper Incontinent Incontinent # Voids 3 2 # Bowel Movements 1 - Exam GENERAL EXAM: Alert, 83-year-old male patient, on room air, resting in bed, in no apparent distress. HEAD: Normocephalic. EYES: Normal reaction of pupils, equal size. NOSE: Clear with pink turbinates. THROAT: No erythema or exudates. NECK: No masses, no JVD. CHEST: No chest wall deformity. LUNGS: Equal air entry with no crackles, wheeze, rhonchi or dullness. CVS: S1 and S2 normal with no audible murmur, regular rhythm. ABDOMEN: No hepatosplenomegaly, normal bowel sounds, no guarding or rigidity. SPINE: No scoliosis or deformity SKIN: No rashes CENTRAL NERVOUS SYSTEM: No focal deficits, tone is normal in all 4 extremities. EXTREMITIES: There is no peripheral edema. No clubbing, no cyanosis. Peripheral pulses are intact. - Labs CBC & Chem 7: 09/21/23 05:53 09/21/23 05:53 Labs: Abnormal Lab Results - Last 24 Hours (Table) 09/21/23 09/21/23 Range/Units 05:53 05:53 WBC 10.63 H (4.50-10.00) X 10*3/uL RBC 4.17 L (4.40-5.60) X 10*6/uL Hct 38.5 L (39.6-50.0) % MCH 32.4 H (27.0-32.0) pg Neutrophils # 8.38 H (1.80-7.70) X 10*3/uL Lymphocytes # 0.83 L (0.90-5.00) X 10*3/uL Eosinophils # 0.50 H (0.04-0.35) X 10*3/uL Sodium 132 L (135-145) mmol/L Calcium 8.2 L (8.7-10.3) mg/dL Total Protein 5.2 L (6.2-8.2) g/dL Albumin 3.5 L (3.8-4.9) g/dL Assessment and Plan Assessment: Acute exacerbation of chronic systolic congestive heart failure. Left ve ntricular ejection fraction 35%, global hypokinesis No significant history of intrinsic pulmonary disease at this time. Procalcitonin negative Longstanding hypertension Lifelong non-smoker History of Lewy body dementia Parkinsonism Plan: The patient was seen and evaluated Labs and medications reviewed Echocardiogram reviewed Initiated on diuretics, RAHEEM inhibitor Continue Symbicort Currently stable and on room air This patient was seen independently by the pulmonary nurse practitioner addressing pulmonary issues I have personally seen and examined the patient, performed the documentation and the assessment and plan as written. Number of minutes spent on the visit: 22.
[2023-09-21] MEDS: FUROSEMIDE 40 MG TAB PO SCH (12:22)
[2023-09-21] MEDS: SPIRONOLACTONE 25 MG TAB PO SCH (12:22)
--- NOTE | 2023-09-21 17:24 | P.PN ---
Subjective Progress Note Date: 09/21/23 Gold Tsang, is an 83-year-old male who presented to [facility] emergency room with a chief complaint of worsening generalized weakness, and urinary incontinence, symptoms started about 1 week ago and has been worsening, patient was seen and examined in the emergency room, his and daughter at the bedside, they state that he was in his usual state of health until about 1 week ago where he started having worsening weakness, and had several episodes of urinary incontinence, they state that he was diagnosed with possible Parkinson disease about 1 year ago he was tried on Sinemet without any significant improvement and that was discontinued, a possible diagnosis of Lewy body dementia was entertained, family also stated that he is followed by a business systems architect in [place], he had a recent stress test which was within normal limits. He was ealuated in the emergency room vital examination on presentation revealed 100.3 pulse 68 respiration 22 blood pressure 168/90 pulse ox 95% on room air Laboratory data revealed a white blood count of 7.6 hemoglobin 13.1 platelet count 140 sodium 130 BUN 30 creatinine 1.19 BNP 5570 Testing in the emergency room revealed CT scan of the brain revealed age-related atrophic and chronic small vessel ischemic change without acute intracranial process, CT scan of the lumbar spine revealed no acute fracture, chest x-ray revealed cardiomegaly with bibasilar opacities Patient was admitted to medical floor for further evaluation and treatment On 09/19/2023 patient is currently resting comfortably in bed. MRI of the brain has been ordered per neurology. Patient having abnormal CT scan of chest will consult pulmonary services and procalcitonin level. At this time patient denies chest pain or shortness of breath. Patient denies nausea vomiting or diarrhea. Patient denies any urinary burning or frequency. On 09/20/2023 patient is currently sitting up in chair. Family at bedside. Awaiting urology consult awaiting neurology consult for urinary incontinence. Neurology cardiology and pulmonary services are following. PT OT consulted. Patient will possibly need rehab upon discharge. Patient denies chest pain or shortness of breath. Patient denies nausea vomiting or diarrhea. Patient denies any urinary burning or frequency On 09/21/2023 patient was seen and examined on the medical floor, he is alert and oriented x 3 in no apparent distress, he is complaining of cough and chest congestion, he is also complaining of low back pain, and urinary incontinence, otherwise he denies any complaints there is no fever or chills, no headache or dizziness no chest pain no shortness of breath, no nausea or vomiting no abdominal pain no diarrhea no urinary symptoms. At this time will recheck chest x-ray, check MRI of the lumbar spine, awaiting recommendation from urology regarding urinary incontinence. Objective - Vital Signs Vital signs: Vital Signs Temp 97.9 F 09/21/23 14:00 Pulse 67 09/21/23 14:00 Resp 17 09/21/23 14:00 BP 164/82 09/21/23 14:00 Pulse Ox 96 09/21/23 14:00 FiO2 Intake & Output 09/20/23 09/21/23 09/21/23 18:59 06:59 18:59 Intake Total 2154 Balance 2154 Intake: Intake, IV Titration 900 Amount Sodium Chloride 0.9% 1, 900 000 ml @ 75 mls/hr IV . [id number] [facility] Rx#:[id number] Oral 1254 Other: Voiding Method Diaper Diaper Diaper Incontinent Incontinent Incontinent # Voids 3 2 # Bowel Movements 1 - Exam In general patient is alert and oriented x 3 in no distress HEENT head normocephalic and atraumatic Neck is supple no JVD no goiter no lymphadenopathy no carotid bruit Chest examination is clear to auscultation no crackles no wheezing Cardiac exam reveals regular heart sounds S1 and S2 no gallops no murmurs Abdomen is soft nontender no organomegaly with normal bowel sounds Extremity exam reveals no edema no cyanosis or clubbing Neurological examination reveals no gross focal deficits - Labs CBC & Chem 7: 09/21/23 05:53 09/21/23 05:53 Labs: Abnormal Lab Results - Last 24 Hours (Table) 09/21/23 09/21/23 Range/Units 05:53 05:53 WBC 10.63 H (4.50-10.00) X 10*3/uL RBC 4.17 L (4.40-5.60) X 10*6/uL Hct 38.5 L (39.6-50.0) % MCH 32.4 H (27.0-32.0) pg Neutrophils # 8.38 H (1.80-7.70) X 10*3/uL Lymphocytes # 0.83 L (0.90-5.00) X 10*3/uL Eosinophils # 0.50 H (0.04-0.35) X 10*3/uL Sodium 132 L (135-145) mmol/L Calcium 8.2 L (8.7-10.3) mg/dL Total Protein 5.2 L (6.2-8.2) g/dL Albumin 3.5 L (3.8-4.9) g/dL Assessment and Plan Plan: Generalized weakness, with difficulty standing and walking Febrile illness, possible pneumonia with bibasilar opacities on chest x-ray. Patient was evaluated by pulmonary services Chronic diastolic congestive heart failure Recent onset of urinary incontinence. Urology services consulted. Urology service is consulted Underlying history of possible Lewy body dementia Underlying history of possible Parkinson disease Underlying history of hypertension At this time patient was seen and examined Home medications reviewed and reordered MRI of the brain ordered per neurology For DVT prophylaxis subcu Lovenox PT OT and social work services consulted for discharge planning patient may need ECF upon discharge Will follow in a.m.
--- NOTE | 2023-09-21 18:03 | XR ---
EXAMINATION TYPE: XR chest 1V portable DATE OF EXAM: 09/21/2023 COMPARISON: 09/18/2023 INDICATION: Cough TECHNIQUE: Single frontal view of the chest is obtained. FINDINGS: The heart size is normal. The pulmonary vasculature is normal. Previous prominence has returned to normal. The lungs are clear. IMPRESSION: 1. No acute pulmonary process.
--- NOTE | 2023-09-21 18:38 | P.GSCN ---
History of Present Illness Consult date: 09/20/23 Reason for Consult: Urinary incontinence Requesting physician: Camille Patino History of present illness: The patient is an 83-year-old white male with a 1 year history of increased urinary frequency. He is suspected to have Lewy body dementia. For the past week, he has experienced generalized weakness and urinary incontinence without awareness. He describes his urinary stream as being weak. He denies dysuria and hematuria. He has an unremarkable urologic history. His PSA level was 0.6 in October 2021. Review of Systems - Genitourinary Reports as per HPI Past Medical History Past Medical History: Hypertension History of Any Multi-Drug Resistant Organisms: None Reported Past Surgical History: Orthopedic Surgery Additional Past Surgical History / Comment(s): bilateral knee surgery, left hip surgery Past Psychological History: No Psychological Hx Reported Smoking Status: Never smoker Past Alcohol Use History: Occasional Past Drug Use History: None Reported Additional Drug Use History / Comment(s): few beers every once in a while Medications and Allergies Home Medications Medication Instructions Recorded Confirmed Type Amoxicillin 500 mg PO BID 09/18/23 09/18/23 History Aspirin EC [Ecotrin Low Dose] 81 mg PO DAILY 09/18/23 09/18/23 History Labetalol [Trandate] 200 mg PO TID 09/18/23 09/18/23 History Magnesium Oxide [Magox 400] 400 mg PO DAILY 09/18/23 09/18/23 History Temazepam [Restoril] 15 mg PO HS 09/18/23 09/18/23 History hydrALAZINE HCL [Apresoline] 50 mg PO BID 09/18/23 09/18/23 History traMADol HCl [Ultram] 50 mg PO HS PRN 09/18/23 09/18/23 History Allergies Allergy/AdvReac Type Severity Reaction Status Date / Time No Known Allergies Allergy Verified 09/18/23 08:14 Surgical - Exam Vital Signs Temp Pulse Resp BP Pulse Ox 100.3 F H 68 22 168/90 95 09/17/23 23:11 09/17/23 23:11 09/17/23 23:11 09/17/23 23:11 09/17/23 23:11 - General well developed, well nourished, no distress - Respiratory normal respiratory effort - Psychiatric oriented to time, oriented to person, oriented to place, speech is normal, memory intact Results - Labs 09/21/23 05:53 09/21/23 05:53 Abnormal Lab Results - Last 24 Hours (Table) 09/19/23 09/19/23 Range/Units 05:56 05:56 RBC 3.92 L (4.40-5.60) X 10*6/uL Hgb 12.7 L (13.0-17.0) g/dL Hct 37.1 L (39.6-50.0) % MCH 32.4 H (27.0-32.0) pg MPV 12.6 H (9.5-12.2) FL Lymphocytes # 0.84 L (0.90-5.00) X 10*3/uL Sodium 133 L (135-145) mmol/L Anion Gap 12.10 H (4.00-12.00) mmol/L Calcium 8.0 L (8.7-10.3) mg/dL Total Protein 5.4 L (6.2-8.2) g/dL Albumin 3.6 L (3.8-4.9) g/dL Diabetes panel 09/19/23 09/19/23 Range/Units 05:56 05:56 Sodium 133 L (135-145) mmol/L Potassium 3.7 (3.5-5.5) mmol/L Chloride 99 (96-109) mmol/L Carbon Dioxide 21.9 (21.6-31.8) mmol/L BUN 15.8 (9.0-27.0) mg/dL Creatinine 1.1 (0.6-1.5) mg/dL Glucose 83 (70-110) mg/dL Hemoglobin A1c 5.2 (<=6.0) % Calcium 8.0 L (8.7-10.3) mg/dL AST 19 (14-35) U/L ALT 16 (10-49) U/L Alkaline Phosphatase 65 (41-126) U/L Total Protein 5.4 L (6.2-8.2) g/dL Albumin 3.6 L (3.8-4.9) g/dL Thyroid panel 09/19/23 Range/Units 05:56 TSH 2.050 (0.350-5.500) UIU/ML Calcium panel 09/19/23 Range/Units 05:56 Calcium 8.0 L (8.7-10.3) mg/dL Albumin 3.6 L (3.8-4.9) g/dL Pituitary panel 09/19/23 Range/Units 05:56 Sodium 133 L (135-145) mmol/L Potassium 3.7 (3.5-5.5) mmol/L Chloride 99 (96-109) mmol/L Carbon Dioxide 21.9 (21.6-31.8) mmol/L BUN 15.8 (9.0-27.0) mg/dL Creatinine 1.1 (0.6-1.5) mg/dL Glucose 83 (70-110) mg/dL Calcium 8.0 L (8.7-10.3) mg/dL TSH 2.050 (0.350-5.500) UIU/ML Adrenal panel 09/19/23 Range/Units 05:56 Sodium 133 L (135-145) mmol/L Potassium 3.7 (3.5-5.5) mmol/L Chloride 99 (96-109) mmol/L Carbon Dioxide 21.9 (21.6-31.8) mmol/L BUN 15.8 (9.0-27.0) mg/dL Creatinine 1.1 (0.6-1.5) mg/dL Glucose 83 (70-110) mg/dL Calcium 8.0 L (8.7-10.3) mg/dL Total Bilirubin 0.5 (0.3-1.2) mg/dL AST 19 (14-35) U/L ALT 16 (10-49) U/L Alkaline Phosphatase 65 (41-126) U/L Total Protein 5.4 L (6.2-8.2) g/dL Albumin 3.6 L (3.8-4.9) g/dL Assessment and Plan (1) Urinary incontinence without sensory awareness Current Visit: Yes Status: Acute Code(s): N39.42 - INCONTINENCE WITHOUT SENSORY AWARENESS SNOMED Code(s): 131931676 Plan: Urinalysis is unremarkable. The postvoid residual will be checked to assess bladder emptying. The patient is uncertain whether or not he has been seen in our office, so I will attempt to find any prior urologic records.
--- NOTE | 2023-09-21 18:42 | P.PN ---
Subjective Progress Note Date: 09/21/23 Principal diagnosis: Urinary incontinence The patient continues to experience urinary incontinence without awareness. Of note, he is also incontinent of stool. Postvoid residuals have been approximately 380 cc. Objective - Vital Signs Vital signs: Vital Signs Temp 97.9 F 09/21/23 14:00 Pulse 67 09/21/23 14:00 Resp 17 09/21/23 14:00 BP 164/82 09/21/23 14:00 Pulse Ox 96 09/21/23 14:00 FiO2 Intake & Output 09/20/23 09/21/23 09/21/23 18:59 06:59 18:59 Intake Total 2154 Balance 2154 Intake: Intake, IV Titration 900 Amount Sodium Chloride 0.9% 1, 900 000 ml @ 75 mls/hr IV . [id number] [facility] Rx#:[id number] Oral 1254 Other: Voiding Method Diaper Diaper Diaper Incontinent Incontinent Incontinent # Voids 3 2 # Bowel Movements 1 - Constitutional General appearance: Present: average body habitus, no acute distress - Gastrointestinal Gastrointestinal Comment(s): Soft, non-tender, non-distended, no mass. - Genitourinary Genitourinary Comment(s): Normal circumcised phallus. Normal scrotum and testes. Normal anal sphincter tone. No rectal masses. The prostate is mildly enlarged and smooth. - Labs CBC & Chem 7: 09/21/23 05:53 09/21/23 05:53 Labs: Abnormal Lab Results - Last 24 Hours (Table) 09/21/23 09/21/23 Range/Units 05:53 05:53 WBC 10.63 H (4.50-10.00) X 10*3/uL RBC 4.17 L (4.40-5.60) X 10*6/uL Hct 38.5 L (39.6-50.0) % MCH 32.4 H (27.0-32.0) pg Neutrophils # 8.38 H (1.80-7.70) X 10*3/uL Lymphocytes # 0.83 L (0.90-5.00) X 10*3/uL Eosinophils # 0.50 H (0.04-0.35) X 10*3/uL Sodium 132 L (135-145) mmol/L Calcium 8.2 L (8.7-10.3) mg/dL Total Protein 5.2 L (6.2-8.2) g/dL Albumin 3.5 L (3.8-4.9) g/dL Assessment and Plan (1) Urinary incontinence without sensory awareness Current Visit: Yes Status: Acute Code(s): N39.42 - INCONTINENCE WITHOUT SENSORY AWARENESS SNOMED Code(s): 305004438 Plan: When there is coexisting incontinence of urine and feces, it is usually neurological in nature. Given the incomplete bladder emptying, I have prescribed tamsulosin with the hopes that this will improve bladder emptying. However, it is unclear whether or not this will improve his urinary continence. Time with Patient: Greater than 30
[2023-09-21] MEDS: TAMSULOSIN 0.4 MG CAP.ER.24H PO SCH (18:55)
[2023-09-22 08:31] LABS: Basophils # (A) 0.04 X 10*3/uL (0.00-0.10); Basophils % (A) 0.4 %; Eosinophils # (A) 0.38 X 10*3/uL (0.04-0.35); HCT 37.9 % (39.6-50.0); HGB 13.2 g/dL (13.0-17.0); Lymphocytes # (A) 1.04 X 10*3/uL (0.90-5.00); MCH 32.8 pg (27.0-32.0); MCHC 34.8 g/dL (32.0-37.0); Mean Platelet Volume 12.4 FL (9.5-12.2); Monocytes # (A) 0.94 X 10*3/uL (0.20-1.00); Monocytes % (A) 9.9 %; NRBC Per 100 WBC 0 X 10*3/uL (0.00-0.01); Neutrophils # (A) 7.05 X 10*3/uL (1.80-7.70); Neutrophils % (A) 74.3 %; Platelet Count 171 X 10*3/uL (140-440); RBC 4.03 X 10*6/uL (4.40-5.60); RDW 13.6 % (11.5-14.5); WBC 9.49 X 10*3/uL (4.50-10.00)
[2023-09-22 08:56] LABS: BUN/Creat Ratio 20.67 Ratio (12.00-20.00); Blood Urea Nitrogen 24.8 mg/dL (9.0-27.0); Glucose 107 mg/dL (70-110)
[2023-09-22 08:57] LABS: ALT 14 U/L (10-49); AST 13 U/L (14-35); Albumin 3.4 g/dL (3.8-4.9); Alkaline Phosphatase 61 U/L (41-126); Calcium 8.1 mg/dL (8.7-10.3); Carbon Dioxide 22.8 mmol/L (21.6-31.8); Chloride 98 mmol/L (96-109); Globulin 1.7 g/dL (1.6-3.3); Sodium 132 mmol/L (135-145); Total Bilirubin 0.5 mg/dL (0.3-1.2); Total Protein 5.1 g/dL (6.2-8.2)
--- NOTE | 2023-09-22 09:40 | P.PN ---
Subjective Progress Note Date: 09/22/23 Gold Tsang, is an 83-year-old male who presented to [facility] emergency room with a chief complaint of worsening generalized weakness, and urinary incontinence, symptoms started about 1 week ago and has been worsening, patient was seen and examined in the emergency room, his and daughter at the bedside, they state that he was in his usual state of health until about 1 week ago where he started having worsening weakness, and had several episodes of urinary incontinence, they state that he was diagnosed with possible Parkinson disease about 1 year ago he was tried on Sinemet without any significant improvement and that was discontinued, a possible diagnosis of Lewy body dementia was entertained, family also stated that he is followed by a 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 He was ealuated in the emergency room vital examination on presentation revealed 100.3 pulse 68 respiration 22 blood pressure 168/90 pulse ox 95% on room air Laboratory data revealed a white blood count of 7.6 hemoglobin 13.1 platelet count 140 sodium 130 BUN 30 creatinine 1.19 BNP 5570 Testing in the emergency room revealed CT scan of the brain revealed age-related atrophic and chronic small vessel ischemic change without acute intracranial process, CT scan of the lumbar spine revealed no acute fracture, chest x-ray revealed cardiomegaly with bibasilar opacities Patient was admitted to medical floor for further evaluation and treatment On 09/19/2023 patient is currently resting comfortably in bed. MRI of the brain has been ordered per neurology. Patient having abnormal CT scan of chest will consult pulmonary services and procalcitonin level. At this time patient denies chest pain or shortness of breath. Patient denies nausea vomiting or diarrhea. Patient denies any urinary burning or frequency. On 09/20/2023 patient is currently sitting up in chair. Family at bedside. Awaiting urology consult awaiting neurology consult for urinary incontinence. Neurology cardiology and pulmonary services are following. PT OT consulted. Patient will possibly need rehab upon discharge. Patient denies chest pain or shortness of breath. Patient denies nausea vomiting or diarrhea. Patient denies any urinary burning or frequency On 09/21/2023 patient was seen and examined on the medical floor, he is alert and oriented x 3 in no apparent distress, he is complaining of cough and chest congestion, he is also complaining of low back pain, and urinary incontinence, otherwise he denies any complaints there is no fever or chills, no headache or dizziness no chest pain no shortness of breath, no nausea or vomiting no abdominal pain no diarrhea no urinary symptoms. At this time will recheck chest x-ray, check MRI of the lumbar spine, awaiting recommendation from urology regarding urinary incontinence. On 09/22/2023 patient's alert and orientedCurrently sitting in bed. Patient to have MRI of the lumbar spine today due to ongoing back pain.Chest x-ray was completed showing no acute pulmonary process.This time patient denies chest pain or shortness breath. Patient denies nausea vomiting or diarrhea. Patient denies any urinary burning or frequency Objective - Vital Signs Vital signs: Vital Signs Temp 98.8 F 09/22/23 07:26 Pulse 70 09/22/23 07:26 Resp 14 09/22/23 08:00 BP 179/82 09/22/23 07:26 Pulse Ox 96 09/22/23 07:26 FiO2 Intake & Output 09/21/23 09/22/23 09/22/23 18:59 06:59 18:59 Other: Voiding Method Diaper Diaper Diaper Incontinent Incontinent Incontinent # Voids 1 1 # Bowel Movements 1 1 - Exam In general patient is alert and oriented x 3 in no distress HEENT head normocephalic and atraumatic Neck is supple no JVD no goiter no lymphadenopathy no carotid bruit Chest examination is clear to auscultation no crackles no wheezing Cardiac exam reveals regular heart sounds S1 and S2 no gallops no murmurs Abdomen is soft nontender no organomegaly with normal bowel sounds Extremity exam reveals no edema no cyanosis or clubbing Neurological examination reveals no gross focal deficits - Labs CBC & Chem 7: 09/22/23 03:55 09/22/23 03:55 Labs: Abnormal Lab Results - Last 24 Hours (Table) 09/22/23 09/22/23 Range/Units 03:55 03:55 RBC 4.03 L (4.40-5.60) X 10*6/uL Hct 37.9 L (39.6-50.0) % MCH 32.8 H (27.0-32.0) pg MPV 12.4 H (9.5-12.2) FL Eosinophils # 0.38 H (0.04-0.35) X 10*3/uL Sodium 132 L (135-145) mmol/L BUN/Creatinine Ratio 20.67 H (12.00-20.00) Ratio Calcium 8.1 L (8.7-10.3) mg/dL AST 13 L (14-35) U/L Total Protein 5.1 L (6.2-8.2) g/dL Albumin 3.4 L (3.8-4.9) g/dL Assessment and Plan Plan: Generalized weakness, with difficulty standing and walking Febrile illness, possible pneumonia with bibasilar opacities on chest x-ray. Patient was evaluated by pulmonary services Chronic diastolic congestive heart failure Recent onset of urinary incontinence. Urology services consulted. Urology service is consulted Underlying history of possible Lewy body dementia Underlying history of possible Parkinson disease Underlying history of hypertension At this time patient was seen and examined Home medications reviewed and reordered MRI of the brain ordered per neurology For DVT prophylaxis subcu Lovenox PT OT and social work services consulted for discharge planning patient may need ECF upon discharge Will follow in a.m.
[2023-09-22] MEDS: FUROSEMIDE 10 MG/ML 2 ML VIAL IV ONE (11:36)
[2023-09-22] MEDS: hydrALAZINE HCL 50 MG TAB PO SCH (11:36)
--- NOTE | 2023-09-22 12:01 | P.PN ---
Subjective HISTORY OF PRESENT ILLNESS: This is a pleasant 83-year-old with past medical history significant for hypertension, Teddy body dementia, possible Parkinson's disease. Patient does not follow with a maintenance and custodian supervisor locally however follows with a maintenance and custodian supervisor in [place]. He states he has not had any significant major cardiac history with prior testing including stress tests and echoes in the past been fairly unremarkable. Cardiology was consult that secondary to CHF. Patient denies any history of heart failure or significant lower extremity edema. Currently is trace lower extremity edema and no major significant shortness breath. He was n oted to have hyponatremia on presentation in the section improved with IV fluids. Patient has had some issues with generalized weakness. Unfortunately over the last week he has been having increased lower extremity weakness as well as some incontinence. He denies any trauma or inciting events. Denies any fevers or chills. He does have chronic shortness breath and is not overly active. EKG sh ows sinus rhythm with frequent PACs and nonspecific ST changes. CT showed coronary artery calcifications as well as mild cardiomegaly and mild interstitial edema correlate for mild CHF as well as ascending aortic aneurysm measuring 4.4 cm. 09/20/2023 Patient examined this morning. Patient is sitting up in the chair. Patient's and daughter are present. The patient currently denies any chest pain or pressure. He denies any shortness of breath. He continues to report weakness in his lower extremities. The patient's daughter does state he was able to ambulate some today which she was unable to do previously. Patient's blood pressures are significantly elevated this morning with a systolic greater than 180. 09/20 patient seen and examined. Patient had felt somewhat better yesterday however today is feeling worse with continued lower extremity weakness and feels that his left leg is worse than his right. Initially recommendation was for outpatient workup for possible radiculopathy however this was yesterday when he was doing better. Blood pressure still remains elevated in the 160s 180s. Echo performed which shows EF 35%. Prior workup from [place] reviewed with the EF 4 0-45% at that time as well as 38% on prior Lexiscan stress test. Prior stress test showed no inducible ischemia. There is documentation of atrial fibrillation however apparently this was very similar to the current situation where there was an EKG that was read out as A. fib however no clear-cut A. fib and therefore no anticoagulation at been recommended. He has not had much of an appetite not eating or drinking much less he is forced. Family admits he does not do well in hospitals and this is part of why doesn't have an appetite. 09/22/2023 Patient examined this morning. Patient is sitting up in the chair. He currently denies chest pain or pressure. He denies shortness of breath. He continues to report generalized weakness. Patient's aide is at the bedside and states he did walk a few steps from the bed to chair this morning. PHYSICAL EXAM: VITAL SIGNS: Reviewed. GENERAL: Well-developed in no acute distress. NECK: Supple. No JVD or thyromegaly LUNGS: Respirations even and unlabored. Lungs essentially clear to auscultation bilaterally. HEART: Regular rate and rhythm. S1 and S2 heard. EXTREMITIES: Normal range of motion. No clubbing or cyanosis. Peripheral pulses intact. No lower extremity edema ASSESSMENT: Lower extremity weakness appears more neurologic Chronic heart failure with reduced EF Cardiomyopathy, known from [place] workup in March 2023 with EF in the 40% range. Assumed nonischemic with prior stress test negative Hypertension Coronary artery calcifications Lewy body dementia Ascending aortic aneurysm 4.4 cm Possible history of Parkinson's disease New onset urinary incontinence report of atrial fibrillation however none identified, PVCs on EKG and prior monitor with no evidence of atrial fibrillation PLAN: Cardiomyopathy appears old and do not feel this is causing any of his current symptoms Continue current cardiac medications Obtain LUISA of lower extremities Further recommendations pending patient course Nurse practitioner note has been reviewed by physician. Signing provider agrees with the documented findings, assessment, and plan of care documented by MOLD FILLER as a scribe. Objective - Vital Signs Vital signs: Vital Signs Temp 98.8 F 09/22/23 07:26 Pulse 70 09/22/23 07:26 Resp 14 09/22/23 08:00 BP 179/82 09/22/23 07:26 Pulse Ox 96 09/22/23 07:26 FiO2 Intake & Output 09/21/23 09/22/23 09/22/23 18:59 06:59 18:59 Other: Voiding Method Diaper Diaper Diaper Incontinent Incontinent Incontinent # Voids 1 1 # Bowel Movements 1 1 - Labs CBC & Chem 7: 09/22/23 03:55 09/22/23 03:55 Labs: Abnormal Lab Results - Last 24 Hours (Table) 09/22/23 09/22/23 Range/Units 03:55 03:55 RBC 4.03 L (4.40-5.60) X 10*6/uL Hct 37.9 L (39.6-50.0) % MCH 32.8 H (27.0-32.0) pg MPV 12.4 H (9.5-12.2) FL Eosinophils # 0.38 H (0.04-0.35) X 10*3/uL Sodium 132 L (135-145) mmol/L BUN/Creatinine Ratio 20.67 H (12.00-20.00) Ratio Calcium 8.1 L (8.7-10.3) mg/dL AST 13 L (14-35) U/L Total Protein 5.1 L (6.2-8.2) g/dL Albumin 3.4 L (3.8-4.9) g/dL
--- NOTE | 2023-09-22 13:11 | P.PN ---
Subjective Progress Note Date: 09/22/23 83-year-old male who presented to the emergency department on September 16, complaining of weakness. Apparently had not been doing well for a couple of weeks, according to family members. He has developed some lower extremity edema as well as some weakness in the lower extremities, low-grade fever, incontine nce, and generally not feeling well. He does get some shortness of breath, when he exerts himself. He apparently has a history of dementia, and hypertension. He sees a regular doctor down in [place]. He also has a history of hyperlipidemia as he takes Pravachol. His other medications include aspirin, diltiazem, pravastatin, clonidine, and hydrochlorothiazide. According to his family members, he may have Lewy body dementia. Current labs include a white count 7.5, hemoglobin 12.7, hematocrit 37.1, and platelet count of 149,000. Sodium 133, potassium 3.7, chloride 79, CO2 22, BUN 16 and creatinine 1.1. Calcium is 8. Total protein 5.4. N-terminal proBNP is 5570. Testing for influenza, RSV, coronavirus were all negative. Chest x-ray in my opinion, shows cardiomegaly, and mild fluid overload. Chest CT shows cardiomegaly, pulmonary arterial hypertension, and mild CHF with pulmonary vascular congestion. The patient is seen today September 20, 2023 in follow-up on the regular medical floor. He is currently sitting up in a chair. Awake and alert in no acute distress. Feeling a bit better today compared to yesterday. He is quite weak. MRI of the brain revealed no acute intracranial process. White count 8.9. Hemoglobin 13.3. Platelets 171. Sodium 132. Potassium 3.8. Bicarb 21. BUN 17. Creatinine 1.1. Glucose 97. He is continued on Symbicort. His procalcitonin was 0.08. Antibiotics discontinued. The patient is seen today September 21, 2023 in follow-up on the regular medical floor. He is sitting up in bed. Awake and alert in no acute distress. He denies any shortness of breath cough or congestion. He is maintaining good O2 saturations in the 90s on room air. He is afebrile. Hemodynamically stable. He remains on Symbicort. Transitioned to oral diuretics. White count 10.6. Hemoglobin 13.5. Platelets 175. Sodium 132. Potassium 4.0. Bicarb 22. BUN 20. Creatinine 1.1. Glucose 107. The patient is seen today 09/22/2023 follow-up on the regular medical floor. He is awake and alert in no acute distress. He is resting quite comfortably in bed. He is maintaining O2 saturations in the 90s on room air. No IV fluids. He is continued on Symbicort. White count 9.4. Hemoglobin 13.2. Platelets 171. Sodium 132. Potassium 4.0. Bicarb 23. BUN 25. Creatinine 1.2. Glucose 107. Objective - Vital Signs Vital signs: Vital Signs Temp 98.8 F 09/22/23 07:26 Pulse 70 09/22/23 07:26 Resp 14 09/22/23 08:00 BP 179/82 09/22/23 07:26 Pulse Ox 96 09/22/23 07:26 FiO2 Intake & Output 09/21/23 09/22/23 09/22/23 18:59 06:59 18:59 Other: Voiding Method Diaper Diaper Diaper Incontinent Incontinent Incontinent # Voids 1 1 # Bowel Movements 1 1 - Exam GENERAL EXAM: Alert, pleasant 83-year-old male patient, on room air, in no apparent distress. HEAD: Normocephalic. EYES: Normal reaction of pupils, equal size. NOSE: Clear with pink turbinates. THROAT: No erythema or exudates. NECK: No masses, no JVD. CHEST: No chest wall deformity. LUNGS: Equal air entry with no crackles, wheeze, rhonchi or dullness. CVS: S1 and S2 normal with no audible murmur, regular rhythm. ABDOMEN: No hepatosplenomegaly, normal bowel sounds, no guarding or rigidity. SPINE: No scoliosis or deformity SKIN: No rashes CENTRAL NERVOUS SYSTEM: No focal deficits, tone is normal in all 4 extremities. EXTREMITIES: There is no peripheral edema. No clubbing, no cyanosis. Peripheral pulses are intact. - Labs CBC & Chem 7: 09/22/23 03:55 09/22/23 03:55 Labs: Abnormal Lab Results - Last 24 Hours (Table) 09/22/23 09/22/23 Range/Units 03:55 03:55 RBC 4.03 L (4.40-5.60) X 10*6/uL Hct 37.9 L (39.6-50.0) % MCH 32.8 H (27.0-32.0) pg MPV 12.4 H (9.5-12.2) FL Eosinophils # 0.38 H (0.04-0.35) X 10*3/uL Sodium 132 L (135-145) mmol/L BUN/Creatinine Ratio 20.67 H (12.00-20.00) Ratio Calcium 8.1 L (8.7-10.3) mg/dL AST 13 L (14-35) U/L Total Protein 5.1 L (6.2-8.2) g/dL Albumin 3.4 L (3.8-4.9) g/dL Assessment and Plan Assessment: Acute exacerbation of chronic systolic congestive heart failure. Left ventricular ejection fraction 35%, global hypokinesis No significant history of intrinsic pulmonary disease at this time. Procalcit onin negative Longstanding hypertension Lifelong non-smoker History of Lewy body dementia Parkinsonism Plan: The patient was seen and evaluated Labs and medications reviewed Continue Symbicort Currently stable and on room air Cleared for discharge from the pulmonary standpoint This patient was seen independently by the pulmonary nurse practitioner addressing pulmonary issues I have personally seen and examined the patient, performed the documentation and the assessment and plan as written. Number of minutes spent on the visit: 24.
--- NOTE | 2023-09-22 15:44 | MR ---
EXAMINATION TYPE: MR lumbar spine wo/w con DATE OF EXAM: 09/22/2023 1:00 PM CLINICAL INDICATION:Male, 83 years old with history of low back pain; PHH, Low Back Pain COMPARISON: CT 09/18/2023 TECHNIQUE: Multi planar, multi sequence imaging was performed utilizing: T1-weighted, T2-weighted, a nd turbo inversion recovery imaging of the lumbar spine. IV Contrast: 10 cc Gadavist. (None if empty) FINDINGS: Alignment: The lumbar vertebral bodies have preserved heights and alignment. Cord: The conus medullaris and the distal spinal cord appear unremarkable with regards to their signa l intensity and morphology. No abnormal postcontrast enhancement. Bones/Discs: Mild degeneration changes throughout the spine with osteophyte formation and facet joint arthropathy. Intervertebral disc signal is maintained. No abnormal inversion recovery signal to sugg est bony edema. No abnormal postcontrast enhancement. T12-L1: No evidence of significant spinal canal stenosis or neural foraminal stenosis. L1-L2: No evidence of significant spinal canal stenosis or neural foraminal stenosis. L2-L3: Disc bulge and facet joint arthropathy result in mild spinal canal and mild bilateral neural f oraminal stenosis. L3-L4: Disc bulge and facet joint arthropathy result in mild spinal canal and moderate bilateral neur al foraminal stenosis. L4-L5: Disc bulge and facet joint arthropathy result in mild spinal canal and moderate to severe bila teral neural foraminal stenosis. L5-S1: The disc has a rounded posterior morphology without significant spinal canal stenosis. Facet j oint arthropathy with moderate to severe right and moderate left bilateral neural foraminal stenosis. Right foraminal perineural cysts which impresses upon the exiting right nerve measuring 11 x 6 mm se alicia 601 image 5. No significant spinal canal or neural foraminal stenosis in the remainder of the visualized levels. Other findings: Right perinephric fluid versus cyst. Left renal cyst. Motion limits evaluation. IMPRESSION: 1. No definitive evidence of disc herniation or significant spinal canal stenosis. 2. Moderate disc degeneration with associated osteoarthritic changes. Neural foraminal stenosis wors e at L5-S1 with moderate to severe right, and moderate severe bilateral L4-L5. 3. L5-S1 right foraminal perineural cyst which impresses upon exiting nerve.
--- NOTE | 2023-09-22 15:54 | US ---
EXAMINATION TYPE: US arterial LE multi level DATE OF EXAM: 09/22/2023 3:37 PM CLINICAL INDICATION: Male, 83 years old with history of r/o PAD; weakness History of: Smoker: no Hypertension: yes Diabetic: no Hyperlipidemia: no TIA/CVA: no Previous Vascular Surgery: no AK: no Vascular Ulcers: no Claudication: no Gangrene: no Doppler Waveforms: Right: Biphasic Left: Biphasic Right Brachial Pressure: 174 Left Brachial Pressure: 167 Ankle-Brachial Indices: Right: 0.93 Left: 0.86 (Vessel hardening > 1.4; Normal 0.9 - 1.4, Moderate 0.7 - 0.9, Severe 0.5-0.7) IMPRESSION: Ankle-brachial indices within normal limits.
--- NOTE | 2023-09-22 18:25 | P.PN ---
Subjective Progress Note Date: 09/22/23 Principal diagnosis: Urinary incontinence The patient continues to experience urinary incontinence without awareness. Of note, he is also incontinent of stool. Postvoid residuals have been approximately 380 cc. He was started on tamsulosin but his voiding symptoms are thus far unchanged. Objective - Vital Signs Vital signs: Vital Signs Temp 99.1 F 09/22/23 13:28 Pulse 71 09/22/23 13:28 Resp 16 09/22/23 13:28 BP 150/80 09/22/23 13:28 Pulse Ox 93 L 09/22/23 13:28 FiO2 Intake & Output 09/21/23 09/22/23 09/22/23 18:59 06:59 18:59 Other: Voiding Method Diaper Diaper Diaper Incontinent Incontinent Incontinent # Voids 1 2 # Bowel Movements 1 1 - Constitutional General appearance: Present: average body habitus, cooperative, no acute distress - Psychiatric Psychiatric: Present: A&O x's 3 - Labs CBC & Chem 7: 09/22/23 03:55 09/22/23 03:55 Labs: Abnormal Lab Results - Last 24 Hours (Table) 09/22/23 09/22/23 Range/Units 03:55 03:55 RBC 4.03 L (4.40-5.60) X 10*6/uL Hct 37.9 L (39.6-50.0) % MCH 32.8 H (27.0-32.0) pg MPV 12.4 H (9.5-12.2) FL Eosinophils # 0.38 H (0.04-0.35) X 10*3/uL Sodium 132 L (135-145) mmol/L BUN/Creatinine Ratio 20.67 H (12.00-20.00) Ratio Calcium 8.1 L (8.7-10.3) mg/dL AST 13 L (14-35) U/L Total Protein 5.1 L (6.2-8.2) g/dL Albumin 3.4 L (3.8-4.9) g/dL Assessment and Plan (1) Urinary incontinence without sensory awareness Current Visit: Yes Status: Acute Code(s): N39.42 - INCONTINENCE WITHOUT SENSORY AWARENESS SNOMED Code(s): 976199825 Plan: When there is coexisting incontinence of urine and feces, it is usually neurol ogical in nature. Given the incomplete bladder emptying, I have prescribed tamsulosin with the hopes that this will improve bladder emptying. Thus far, there has been no change in his voiding status. He is urologically stable for discharge. I have prescribed tamsulosin, but I have advised him to stay on it only if he experiences symptomatic improvement. He will follow-up with me as needed. Please notify me if I can be of any further assistance.
--- NOTE | 2023-09-23 07:19 | P.PN ---
Subjective Progress Note Date: 09/23/23 Principal diagnosis: Shortness of breath. 83-year-old male who presented to the emergency department on September 16, complaining of weakness. Apparently had not been doing well for a couple of weeks, according to family members. He has developed some lower extremity edema as well as some weakness in the lower extremities, low-grade fever, incontinence, and generally not feeling well. He does get some shortness of breath, when he exerts himself. He apparently has a history of dementia, and hypertension. He sees a regular doctor down in [place]. He also has a history of hyperlipidemia as he takes Pravachol. His other medications include aspirin, diltiazem, pravastatin, clonidine, and hydrochlorothiazide. According to his family members, he may have Lewy body dementia. Current labs include a white count 7.5, hemoglobin 12.7, hematocrit 37.1, and platelet count of 149,000. Sodium 133, potassium 3.7, chloride 79, CO2 22, BUN 16 and creatinine 1.1. Calcium is 8. Total protein 5.4. N-terminal proBNP is 5570. Testing for influenza, RSV, coronavirus were all negative. Chest x-ray in my opinion, shows cardiomegaly, and mild fluid overload. Chest CT shows cardiomegaly, pulmonary arterial hypertension, and mild CHF with pulmonary vascular congestion. The patient is seen today September 20, 2023 in follow-up on the regular medical floor. He is currently sitting up in a chair. Awake and alert in no acute distress. Feeling a bit better today compared to yesterday. He is quite weak. MRI of the brain revealed no acute intracranial process. White count 8.9. Hemoglobin 13.3. Platelets 171. Sodium 132. Potassium 3.8. Bicarb 21. BUN 17. Creatinine 1.1. Glucose 97. He is continued on Symbicort. His procalcitonin was 0.08. Antibiotics discontinued. The patient is seen today September 21, 2023 in follow-up on the regular medical floor. He is sitting up in bed. Awake and alert in no acute distress. He denies any shortness of breath cough or congestion. He is maintaining good O2 saturations in the 90s on room air. He is afebrile. Hemodynamically stable. He remains on Symbicort. Transitioned to oral diuretics. White count 10.6. Hemoglobin 13.5. Platelets 175. Sodium 132. Potassium 4.0. Bicarb 22. BUN 20. Creatinine 1.1. Glucose 107. The patient is seen today 09/22/2023 follow-up on the regular medical floor. He is awake and alert in no acute distress. He is resting quite comfortably in bed. He is maintaining O2 saturations in the 90s on room air. No IV fluids. He is continued on Symbicort. White count 9.4. Hemoglobin 13.2. Platelets 171. Sodium 132. Potassium 4.0. Bicarb 23. BUN 25. Creatinine 1.2. Glucose 107. Progress note dated September 23, 2023. 83-year-old gentleman who seen again in room 528. The patient came into the emergency department complaining of weakness. Family members are at the bedside and gave some additional history. The patient has a history of dementia, and for that reason, is not a particularly good historian. Currently, he is seen today in the room 528. He is on no supplemental oxygen. He is not receiving any IV fluids. The patient's Symbicort will be discontinued. No new labs today. Labs from September 21 have been reviewed. Chest x-ray from September 20 was normal. Objective - Vital Signs Vital signs: Vital Signs Temp 98.4 F 09/23/23 01:51 Pulse 67 09/23/23 01:51 Resp 16 09/23/23 01:51 BP 139/74 09/23/23 01:51 Pulse Ox 97 09/23/23 01:51 FiO2 Intake & Output 09/22/23 09/23/23 09/23/23 18:59 06:59 18:59 Output Total 600 Balance -600 Output: Urine 600 Other: Voiding Method Diaper Diaper Incontinent Incontinent # Voids 2 # Bowel Movements 1 - Exam No acute distress, oriented 3. Currently on room air. No distress. HEENT examination is grossly unremarkable. Mucous membranes are moist. No oral lesions. Neck supple. Full range of motion. No adenopathy thyromegaly or neck vein distention. Cardiovascular examination reveals regular rhythm rate. S1-S2 normal. No S3 or S4. No discernible murmur noted. Heart rate 67 bpm. Lungs reveal clear breath sounds. Breath sounds are equal bilaterally. No adventitious lung sounds including wheezes rhonchi or crackles. Room air saturation is 97%. Abdomen soft bowel sounds are heard. No masses or tenderness. Extremities are intact. No cyanosis clubbing or edema. Skin is without rash or lesion. Neurologic examination is brief but nonfocal. - Labs CBC & Chem 7: 09/22/23 03:55 09/22/23 03:55 Labs: Abnormal Lab Results - Last 24 Hours (Table) 09/22/23 09/22/23 Range/Units 03:55 03:55 RBC 4.03 L (4.40-5.60) X 10*6/uL Hct 37.9 L (39.6-50.0) % MCH 32.8 H (27.0-32.0) pg MPV 12.4 H (9.5-12.2) FL Eosinophils # 0.38 H (0.04-0.35) X 10*3/uL Sodium 132 L (135-145) mmol/L BUN/Creatinine Ratio 20.67 H (12.00-20.00) Ratio Calcium 8.1 L (8.7-10.3) mg/dL AST 13 L (14-35) U/L Total Protein 5.1 L (6.2-8.2) g/dL Albumin 3.4 L (3.8-4.9) g/dL Assessment and Plan Assessment: Weakness, shortness of breath on exertion, and mild lower extremity edema, most likely consistent with congestive heart failure. Chronic systolic congestive heart failure. Left ventricular ejection fraction 35%. No significant history of intrinsic pulmonary disease at this time. Longstanding hypertension. Lifelong non-smoker. History of Lewy body dementia. Plan: Plan dated September 19, 2023. The patient is seen, and examined. We speak to the family members including the and daughter. The patient apparently has a history of longstanding hypertension, and may have Lewy body dementia. The patient presents with weeks worth of increasing weakness, urinary incontinence, shortness of breath on exertion, and mild lower extremity edema. The patient was seen by cardiology an d they suspect diastolic CHF. There does not appear to be any intrinsic pulmonary disease at this time. Labs, x-rays, medications are reviewed. The patient is a lifelong non-smoker. Plan dated September 23, 2023. The patient is currently doing relatively well from the pulmonary and cardiac standpoint. The patient does not have any intrinsic pulmonary disease, and, is on room air. Saturations are 97%. The patient is poor historian because of his dementia. Labs, x-rays, medications are reviewed. No additional recommendations are made. Will see the patient only as needed moving forward. Symbicort is discontinued as it is not indicated in this situation. Time with Patient: Less than 30
[2023-09-23] MEDS: VALSARTAN 160 MG TAB PO SCH (09:07)
[2023-09-23 09:41] LABS: Basophils # (A) 0.06 X 10*3/uL (0.00-0.10); Basophils % (A) 0.7 %; Eosinophils # (A) 0.61 X 10*3/uL (0.04-0.35); Eosinophils % (A) 6.7 %; HCT 40.4 % (39.6-50.0); HGB 13.9 g/dL (13.0-17.0); Lymphocytes # (A) 1.04 X 10*3/uL (0.90-5.00); Lymphocytes % (A) 11.4 %; MCH 31.7 pg (27.0-32.0); MCHC 34.4 g/dL (32.0-37.0); MCV 92.2 FL (80.0-97.0); Mean Platelet Volume 12.1 FL (9.5-12.2); Monocytes # (A) 0.76 X 10*3/uL (0.20-1.00); Monocytes % (A) 8.4 %; NRBC Per 100 WBC 0 X 10*3/uL (0.00-0.01); Neutrophils % (A) 72.5 %; Platelet Count 200 X 10*3/uL (140-440); RBC 4.38 X 10*6/uL (4.40-5.60); RDW 13.6 % (11.5-14.5)
[2023-09-23 09:51] LABS: ALT 15 U/L (10-49); AST 14 U/L (14-35); Albumin 3.5 g/dL (3.8-4.9); Albumin/Globulin Ratio 1.84 Ratio (1.60-3.17); Alkaline Phosphatase 61 U/L (41-126); Calcium 8.4 mg/dL (8.7-10.3); Carbon Dioxide 24.6 mmol/L (21.6-31.8); Chloride 97 mmol/L (96-109); Globulin 1.9 g/dL (1.6-3.3); Glucose 103 mg/dL (70-110); Sodium 132 mmol/L (135-145); Total Bilirubin 0.4 mg/dL (0.3-1.2); Total Protein 5.4 g/dL (6.2-8.2)
--- NOTE | 2023-09-23 12:06 | P.PN ---
Subjective Progress Note Date: 09/23/23 Gold Tsang, is an 83-year-old male who presented to [facility] emergency room with a chief complaint of worsening generalized weakness, and urinary incontinence, symptoms started about 1 week ago and has been worsening, patient was seen and examined in the emergency room, his and daughter at the bedside, they state that he was in his usual state of health until about 1 week ago where he started having worsening weakness, and had several episodes of urinary incontinence, they state that he was diagnosed with possible Parkinson disease about 1 year ago he was tried on Sinemet without any significant improvement and that was discontinued, a possible diagnosis of Lewy body dementia was entertained, family also stated that he is followed by a insurance adjuster in [place], he had a recent stress test which was within normal limits. He was ealuated in the emergency room vital examination on presentation revealed 100.3 pulse 68 respiration 22 blood pressure 168/90 pulse ox 95% on room air Laboratory data revealed a white blood count of 7.6 hemoglobin 13.1 platelet count 140 sodium 130 BUN 30 creatinine 1.19 BNP 5570 Testing in the emergency room revealed CT scan of the brain revealed age-related atrophic and chronic small vessel ischemic change without acute intracranial process, CT scan of the lumbar spine revealed no acute fracture, chest x-ray revealed cardiomegaly with bibasilar opacities Patient was admitted to medical floor for further evaluation and treatment On 09/19/2023 patient is currently resting comfortably in bed. MRI of the brain has been ordered per neurology. Patient having abnormal CT scan of chest will consult pulmonary services and procalcitonin level. At this time patient denies chest pain or shortness of breath. Patient denies nausea vomiting or diarrhea. Patient denies any urinary burning or frequency. On 09/20/2023 patient is currently sitting up in chair. Family at bedside. Awaiting urology consult awaiting neurology consult for urinary incontinence. Neurology cardiology and pulmonary services are following. PT OT consulted. Patient will possibly need rehab upon discharge. Patient denies chest pain or shortness of breath. Patient denies nausea vomiting or diarrhea. Patient denies any urinary burning or frequency On 09/21/2023 patient was seen and examined on the medical floor, he is alert and oriented x 3 in no apparent distress, he is complaining of cough and chest congestion, he is also complaining of low back pain, and urinary incontinence, otherwise he denies any complaints there is no fever or chills, no headache or dizziness no chest pain no shortness of breath, no nausea or vomiting no abdominal pain no diarrhea no urinary symptoms. At this time will recheck chest x-ray, check MRI of the lumbar spine, awaiting recommendation from urology regarding urinary incontinence. On 09/22/2023 patient's alert and oriented currently sitting in bed. Patient to have MRI of the lumbar spine today due to ongoing back pain.Chest x-ray was completed showing no acute pulmonary process.This time patient denies chest pain or shortness breath. Patient denies nausea vomiting or diarrhea. Patient denies any urinary burning or frequency On 10/01/2023 patient was seen and examined on the medical floor, he is alert and oriented x 3 in no apparent distress he is sitting up in a chair he is complaining of bilateral lower extremity pain, he is still complaining of stool and urine incontinence, otherwise he denies any complaints at this time there is no fever or chills no headache or dizziness no chest pain no shortness of breath no cough no nausea or vomiting no abdominal pain no burning with urination no frequency or urgency and no hematuria. Lumbar spine MRI results discussed with patient and his , input from multiple specialist including neurology, urology, pulmonary and cardiology reviewed with patient and his , at this time will continue with current management continue with physical therapy, possible transfer to rehab on Monday. Objective - Vital Signs Vital signs: Vital Signs Temp 97.9 F 09/23/23 07:40 Pulse 65 09/23/23 07:40 Resp 14 09/23/23 07:40 BP 168/80 09/23/23 07:40 Pulse Ox 96 09/23/23 07:40 FiO2 Intake & Output 09/22/23 09/23/23 09/23/23 18:59 06:59 18:59 Output Total 600 Balance -600 Output: Urine 600 Other: Voiding Method Diaper Diaper Diaper Incontinent Incontinent Incontinent External Catheter # Voids 2 # Bowel Movements 1 - Exam In general patient is alert and oriented x 3 in no distress HEENT head normocephalic and atraumatic Neck is supple no JVD no goiter no lymphadenopathy no carotid bruit Chest examination is clear to auscultation no crackles no wheezing Cardiac exam reveals regular heart sounds S1 and S2 no gallops no murmurs Abdomen is soft nontender no organomegaly with normal bowel sounds Extremity exam reveals no edema no cyanosis or clubbing Neurological examination reveals no gross focal deficits - Labs CBC & Chem 7: 09/23/23 05:12 09/23/23 05:12 Labs: Abnormal Lab Results - Last 24 Hours (Table) 09/23/23 09/23/23 Range/Units 05:12 05:12 RBC 4.38 L (4.40-5.60) X 10*6/uL Eosinophils # 0.61 H (0.04-0.35) X 10*3/uL Sodium 132 L (135-145) mmol/L BUN/Creatinine Ratio 22.50 H (12.00-20.00) Ratio Calcium 8.4 L (8.7-10.3) mg/dL Total Protein 5.4 L (6.2-8.2) g/dL Albumin 3.5 L (3.8-4.9) g/dL Assessment and Plan Plan: Generalized weakness, with difficulty standing and walking Febrile illness, possible pneumonia with bibasilar opacities on chest x-ray. Patient was evaluated by pulmonary services Chronic diastolic congestive heart failure Recent onset of urinary incontinence. Urology services consulted. Urology service is consulted Underlying history of possible Lewy body dementia Underlying history of possible Parkinson disease Underlying history of hypertension At this time patient was seen and examined Home medications reviewed and reordered MRI of the brain ordered per neurology For DVT prophylaxis subcu Lovenox PT OT and social work services consulted for discharge planning patient may need ECF upon discharge Will follow in a.m.
--- NOTE | 2023-09-23 14:44 | P.PN ---
Subjective Progress Note Date: 09/23/23 patient is an 83-year-old male who presented to the hospital with lower extremity weakness. Cardiology was consulted for congestive heart failure as well as hypertension. The patient continues to have elevated blood pressure readings in the 150s to 170s. Patient interviewed and examined resting in bed. He states he still struggles with lower extremity weakness and is unable to walk. No chest pain or difficulty breathing. GENERAL: Well-appearing, well-nourished and in no acute distress. NECK: Supple without JVD or thyromegaly. LUNGS: Breath sounds clear to auscultation bilaterally. Respiration equal and unlabored. No wheezes, rales or rhonchi. HEART: Regular rate and rhythm without murmurs, rubs or gallops. S1 and S2 heard. EXTREMITIES: Normal range of motion, mild edema. No clubbing or cyanosis. Peripheral pulses intact and strong. TELEMETRY: sinus rhythm overnight IMPRESSION: Lower extremity weakness appears more neurologic Chronic heart failure with reduced EF Cardiomyopathy, known from [place] workup in March 2023 with EF in the 40% range. Assumed nonischemic with prior stress test negative Hypertension Coronary artery calcifications Lewy body dementia Ascending aortic aneurysm 4.4 cm Possible history of Parkinson's disease New onset urinary incontinence report of atrial fibrillation however none identified, PVCs on EKG and prior monitor with no evidence of atrial fibrillation PLAN: discontinue labetalol Switch to carvedilol for cardiomyopathy Switch lisinopril to valsartan and preparation to switch to Entresto outpatient I am dictating on behalf of Dr James Lennon's history/physical and assessment/plan. Objective - Vital Signs Vital signs: Vital Signs Temp 98.4 F 09/23/23 13:20 Pulse 73 09/23/23 13:20 Resp 16 09/23/23 13:20 BP 127/71 09/23/23 13:20 Pulse Ox 95 09/23/23 13:20 FiO2 Intake & Output 09/22/23 09/23/23 09/23/23 18:59 06:59 18:59 Output Total 600 Balance -600 Output: Urine 600 Other: Voiding Method Diaper Diaper Diaper Incontinent Incontinent Incontinent External Catheter # Voids 2 # Bowel Movements 1 - Labs CBC & Chem 7: 09/23/23 05:12 09/23/23 05:12 Labs: Abnormal Lab Results - Last 24 Hours (Table) 09/23/23 09/23/23 Range/Units 05:12 05:12 RBC 4.38 L (4.40-5.60) X 10*6/uL Eosinophils # 0.61 H (0.04-0.35) X 10*3/uL Sodium 132 L (135-145) mmol/L BUN/Creatinine Ratio 22.50 H (12.00-20.00) Ratio Calcium 8.4 L (8.7-10.3) mg/dL Total Protein 5.4 L (6.2-8.2) g/dL Albumin 3.5 L (3.8-4.9) g/dL
[2023-09-23] MEDS: carvediloL 12.5 MG TAB PO SCH (17:33)
--- NOTE | 2023-09-24 09:54 | P.PN ---
Subjective Progress Note Date: 09/24/23 Gold Tsang, is an 83-year-old male who presented to [facility] emergency room with a chief complaint of worsening generalized weakness, and urinary incontinence, symptoms started about 1 week ago and has been worsening, patient was seen and examined in the emergency room, his and daughter at the bedside, they state that he was in his usual state of health until about 1 week ago where he started having worsening weakness, and had several episodes of urinary incontinence, they state that he was diagnosed with possible Parkinson disease about 1 year ago he was tried on Sinemet without any significant improvement and that was discontinued, a possible diagnosis of Lewy body dementia was entertained, family also stated that he is followed by a pickling operator in [place], he had a recent stress test which was within normal limits. He was ealuated in the emergency room vital examination on presentation revealed 100.3 pulse 68 respiration 22 blood pressure 168/90 pulse ox 95% on room air Laboratory data revealed a white blood count of 7.6 hemoglobin 13.1 platelet count 140 sodium 130 BUN 30 creatinine 1.19 BNP 5570 Testing in the emergency room revealed CT scan of the brain revealed age-related atrophic and chronic small vessel ischemic change without acute intracranial process, CT scan of the lumbar spine revealed no acute fracture, chest x-ray revealed cardiomegaly with bibasilar opacities Patient was admitted to medical floor for further evaluation and treatment On 09/19/2023 patient is currently resting comfortably in bed. MRI of the brain has been ordered per neurology. Patient having abnormal CT scan of chest will consult pulmonary services and procalcitonin level. At this time patient denies chest pain or shortness of breath. Patient denies nausea vomiting or diarrhea. Patient denies any urinary burning or frequency. On 09/20/2023 patient is currently sitting up in chair. Family at bedside. Awaiting urology consult awaiting neurology consult for urinary incontinence. Neurology cardiology and pulmonary services are following. PT OT consulted. Patient will possibly need rehab upon discharge. Patient denies chest pain or shortness of breath. Patient denies nausea vomiting or diarrhea. Patient denies any urinary burning or frequency On 09/21/2023 patient was seen and examined on the medical floor, he is alert and oriented x 3 in no apparent distress, he is complaining of cough and chest congestion, he is also complaining of low back pain, and urinary incontinence, otherwise he denies any complaints there is no fever or chills, no headache or dizziness no chest pain no shortness of breath, no nausea or vomiting no abdominal pain no diarrhea no urinary symptoms. At this time will recheck chest x-ray, check MRI of the lumbar spine, awaiting recommendation from urology regarding urinary incontinence. On 09/22/2023 patient's alert and oriented currently sitting in bed. Patient to have MRI of the lumbar spine today due to ongoing back pain.Chest x-ray was completed showing no acute pulmonary process.This time patient denies chest pain or shortness breath. Patient denies nausea vomiting or diarrhea. Patient denies any urinary burning or frequency On 10/01/2023 patient was seen and examined on the medical floor, he is alert and oriented x 3 in no apparent distress he is sitting up in a chair he is complaining of bilateral lower extremity pain, he is still complaining of stool and urine incontinence, otherwise he denies any complaints at this time there is no fever or chills no headache or dizziness no chest pain no shortness of breath no cough no nausea or vomiting no abdominal pain no burning with urination no frequency or urgency and no hematuria. Lumbar spine MRI results discussed with patient and his , input from multiple specialist including neurology, urology, pulmonary and cardiology reviewed with patient and his , at this time will continue with current management continue with physical therapy, possible transfer to rehab on Monday. On 09/24/2023 patient is alert and oriented x 3. Current vital signs Temp 98.6, heart 68, respiratory rate 16, blood pressure 159/80 with pulse ox 96% on room air. Patient denies chest pain or shortness of breath. Patient denies nausea vomiting or diarrhea. Patient denies any urinary burning or frequency Objective - Vital Signs Vital signs: Vital Signs Temp 98 F 09/24/23 08:00 Pulse 73 09/24/23 08:00 Resp 16 09/24/23 08:00 BP 179/94 09/24/23 08:00 Pulse Ox 96 09/24/23 08:00 FiO2 Intake & Output 09/23/23 09/24/23 09/24/23 18:59 06:59 18:59 Intake Total 240 Output Total 1000 600 Balance -1000 -360 Intake: Oral 240 Output: Urine 1000 600 Other: Voiding Method Diaper Diaper Diaper Incontinent Incontinent Incontinent External Catheter External Catheter External Catheter - Exam In general patient is alert and oriented x 3 in no distress HEENT head normocephalic and atraumatic Neck is supple no JVD no goiter no lymphadenopathy no carotid bruit Chest examination is clear to auscultation no crackles no wheezing Cardiac exam reveals regular heart sounds S1 and S2 no gallops no murmurs Abdomen is soft nontender no organomegaly with normal bowel sounds Extremity exam reveals no edema no cyanosis or clubbing Neurological examination reveals no gross focal deficits - Labs CBC & Chem 7: 09/23/23 05:12 09/23/23 05:12 Assessment and Plan Plan: Generalized weakness, with difficulty standing and walking Febrile illness, possible pneumonia with bibasilar opacities on chest x-ray. Patient was evaluated by pulmonary services Chronic diastolic congestive heart failure Recent onset of urinary incontinence. Urology services consulted. Urology service is consulted Underlying history of possible Lewy body dementia Underlying history of possible Parkinson disease Underlying history of hypertension At this time patient was seen and examined Home medications reviewed and reordered MRI of the brain ordered per neurology For DVT prophylaxis subcu Lovenox PT OT and social work services consulted for discharge planning patient may need ECF upon discharge Will follow in a.m.
--- NOTE | 2023-09-24 11:24 | P.PN ---
Subjective HISTORY OF PRESENT ILLNESS: This is a pleasant 83-year-old with past medical history significant for hypertension, Teddy body dementia, possible Parkinson's disease. Patient does not follow with a wood preparation supervisor locally however follows with a wood preparation supervisor in [place]. He states he has not had any significant major cardiac history with prior testing including stress tests and echoes in the past been fairly unremarkable. Cardiology was consult that secondary to CHF. Patient denies any history of heart failure or significant lower extremity edema. Currently is trace lower extremity edema and no major significant shortness breath. He was n oted to have hyponatremia on presentation in the section improved with IV fluids. Patient has had some issues with generalized weakness. Unfortunately over the last week he has been having increased lower extremity weakness as well as some incontinence. He denies any trauma or inciting events. Denies any fevers or chills. He does have chronic shortness breath and is not overly active. EKG sh ows sinus rhythm with frequent PACs and nonspecific ST changes. CT showed coronary artery calcifications as well as mild cardiomegaly and mild interstitial edema correlate for mild CHF as well as ascending aortic aneurysm measuring 4.4 cm. 09/20/2023 Patient examined this morning. Patient is sitting up in the chair. Patient's and daughter are present. The patient currently denies any chest pain or pressure. He denies any shortness of breath. He continues to report weakness in his lower extremities. The patient's daughter does state he was able to ambulate some today which she was unable to do previously. Patient's blood pressures are significantly elevated this morning with a systolic greater than 180. 09/20 patient seen and examined. Patient had felt somewhat better yesterday however today is feeling worse with continued lower extremity weakness and feels that his left leg is worse than his right. Initially recommendation was for outpatient workup for possible radiculopathy however this was yesterday when he was doing better. Blood pressure still remains elevated in the 160s 180s. Echo performed which shows EF 35%. Prior workup from [place] reviewed with the EF 4 0-45% at that time as well as 38% on prior Lexiscan stress test. Prior stress test showed no inducible ischemia. There is documentation of atrial fibrillation however apparently this was very similar to the current situation where there was an EKG that was read out as A. fib however no clear-cut A. fib and therefore no anticoagulation at been recommended. He has not had much of an appetite not eating or drinking much less he is forced. Family admits he does not do well in hospitals and this is part of why doesn't have an appetite. 09/22/2023 Patient examined this morning. Patient is sitting up in the chair. He currently denies chest pain or pressure. He denies shortness of breath. He continues to report generalized weakness. Patient's aide is at the bedside and states he did walk a few steps from the bed to chair this morning. 09/24/2023 Patient examined this morning at the bedside. Patient currently denies chest pain or pressure. He denies shortness of breath. He continues to report lower extremity weakness and states he is having difficulty ambulating. He continues to report urinary incontinence as well. Patient's antihypertensive regimen was adjusted yesterday. His blood pressure still remain on the high side this morning with a systolic in the 150s. PHYSICAL EXAM: VITAL SIGNS: Reviewed. GENERAL: Well-developed in no acute distress. NECK: Supple. No JVD or thyromegaly LUNGS: Respirations even and unlabored. Lungs essentially clear to auscultation bilaterally. HEART: Regular rate and rhythm. S1 and S2 heard. EXTREMITIES: Normal range of motion. No clubbing or cyanosis. Peripheral pulses intact. No lower extremity edema ASSESSMENT: Lower extremity weakness appears more neurologic Chronic heart failure with reduced EF Cardiomyopathy, known from [place] workup in March 2023 with EF in the 40% range. Assumed nonischemic with prior stress test negative Hypertension Coronary artery calcifications Lewy body dementia Ascending aortic aneurysm 4.4 cm Possible history of Parkinson's disease New onset urinary incontinence report of atrial fibrillation however none identified, PVCs on EKG and prior monitor with no evidence of atrial fibrillation PLAN: Continue current cardiac medications. Patient's antihypertensive regimen was adjusted yesterday. Continue to monitor blood pressure Further recommendations pending patient course Nurse practitioner note has been reviewed by physician. Signing provider agrees with the documented findings, assessment, and plan of care documented by FORDER OPERATOR as a scribe. Objective - Vital Signs Vital signs: Vital Signs Temp 98 F 09/24/23 08:00 Pulse 73 09/24/23 08:00 Resp 16 09/24/23 08:00 BP 179/94 09/24/23 08:00 Pulse Ox 96 09/24/23 08:00 FiO2 Intake & Output 09/23/23 09/24/23 09/24/23 18:59 06:59 18:59 Intake Total 240 Output Total 1000 600 Balance -1000 -360 Intake: Oral 240 Output: Urine 1000 600 Other: Voiding Method Diaper Diaper Diaper Incontinent Incontinent Incontinent External Catheter External Catheter External Catheter - Labs CBC & Chem 7: 09/23/23 05:12 09/23/23 05:12
[2023-09-24] MEDS ORDERED: ARTIFICIAL TEARS-HYPROMELLOSE DROPS 15 ML BTL BOTH EYES PRN (18:05)
[2023-09-25 07:41] VITALS: RESP 16
[2023-09-25 11:54] VITALS: BMI 29.5
[2023-09-25] MEDS: hydrALAZINE HCL 25 MG TAB PO STA (12:38)
--- NOTE | 2023-09-25 12:46 | P.PN ---
Subjective Progress Note Date: 09/25/23 HISTORY OF PRESENT ILLNESS: This is a pleasant 83-year-old with past medical history significant for hype rtension, Teddy body dementia, possible Parkinson's disease. Patient does not follow with a supervisor electronics assembly locally however follows with a supervisor electronics assembly in [place]. He states he has not had any significant major cardiac history with prior testing including stress tests and echoes in the past been fairly unremarkable. Cardiology was consult that secondary to CHF. Patient denies any history of heart failure or significant lower extremity edema. Currently is trace lower extremity edema and no major significant shortness breath. He was noted to have hyponatremia on presentation in the section improved with IV fluids. Patient has had some issues with generalized weakness. Unfortunately over the last week he has been having increased lower extremity weakness as well as some incontinence. He denies any trauma or inciting events. Denies any fevers or chills. He does have chronic shortness breath and is not overly active. EKG shows sinus rhythm with frequent PACs and nonspecific ST changes. CT showed coronary artery calcifications as well as mild cardiomegaly and mild interstitial edema correlate for mild CHF as well as ascending aortic aneurysm measuring 4.4 cm. 09/20/2023 Patient examined this morning. Patient is sitting up in the chair. Patient's and daughter are present. The patient currently denies any chest pain or pressure. He denies any shortness of breath. He continues to report weakness in his lower extremities. The patient's daughter does state he was able to ambulate some today which she was unable to do previously. Patient's blood pressures are significantly elevated this morning with a systolic greater than 180. 09/20 patient seen and examined. Patient had felt somewhat better yesterday however today is feeling worse with continued lower extremity weakness and feels that his left leg is worse than his right. Initially recommendation was for outpatient workup for possible radiculopathy however this was yesterday when he was doing better. Blood pressure still remains elevated in the 160s 180s. Echo performed which shows EF 35%. Prior workup from [place] reviewed with the EF 40-45% at that time as well as 38% on prior Lexiscan stress test. Prior stress test showed no inducible ischemia. There is documentation of atrial fibrillatio n however apparently this was very similar to the current situation where there was an EKG that was read out as A. fib however no clear-cut A. fib and therefore no anticoagulation at been recommended. He has not had much of an appetite not eating or drinking much less he is forced. Family admits he does not do well in hospitals and this is part of why doesn't have an appetite. 09/22/2023 Patient examined this morning. Patient is sitting up in the chair. He currently denies chest pain or pressure. He denies shortness of breath. He continues to report generalized weakness. Patient's aide is at the bedside and states he did walk a few steps from the bed to chair this morning. 09/24/2023 Patient examined this morning at the bedside. Patient currently denies chest pain or pressure. He denies shortness of breath. He continues to report lower extremity weakness and states he is having difficulty ambulating. He continues to report urinary incontinence as well. Patient's antihypertensive regimen was adjusted yesterday. His blood pressure still remain on the high side this morning with a systolic in the 150s. 09/24 Patient is seen and examined. Patient's antihypertensive medications have been adjusted during this hospital stay. Blood pressure this morning 147/81 and up to 170/92 during the night. Heart rate is in the 70s, pulse ox 97% on room air. Patient presented to the hospital due to weakness and he feels he is about the same. According to family, patient may be going to rehab to build up some strength. PHYSICAL EXAM: VITAL SIGNS: Reviewed. GENERAL: Well-developed in no acute distress. NECK: Supple. No JVD or thyromegaly LUNGS: Respirations even and unlabored. Lungs essentially clear to auscultation bilaterally. HEART: Regular rate and rhythm. S1 and S2 heard. EXTREMITIES: Normal range of motion. No clubbing or cyanosis. Peripheral pulses intact. No lower extremity edema ASSESSMENT: Lower extremity weakness appears more neurologic Chronic heart failure with reduced EF Cardiomyopathy, known from [place] workup in March 2023 with EF in the 40% range. Assumed nonischemic with prior stress test negative Hypertension Coronary artery calcifications Lewy body dementia Ascending aortic aneurysm 4.4 cm Possible history of Parkinson's disease New onset urinary incontinence report of atrial fibrillation however none identified, PVCs on EKG and prior monitor with no evidence of atrial fibrillation PLAN: Continue current cardiac medications. Increase hydralazine to 75 mg 3 times daily Continue to monitor blood pressure Further recommendations pending patient course Nurse practitioner note has been reviewed by physician. Signing provider agrees with the documented findings, assessment, and plan of care documented by HEATING AND REFRIGERATION INSPECTOR as a scribe. Objective - Vital Signs Vital signs: Vital Signs Temp 98.4 F 09/25/23 07:29 Pulse 77 09/25/23 07:29 Resp 16 09/25/23 07:29 BP 157/81 09/25/23 07:29 Pulse Ox 97 09/25/23 07:29 FiO2 Intake & Output 09/24/23 09/25/23 09/25/23 18:59 06:59 18:59 Intake Total 1080 Output Total 1200 1050 Balance -120 -1050 Intake: Oral 1080 Output: Urine 1200 1050 Other: Voiding Method Diaper Diaper Diaper Incontinent Incontinent Incontinent External Catheter External Catheter External Catheter # Voids 0 # Bowel Movements 0 - Labs CBC & Chem 7: 09/23/23 05:12 09/23/23 05:12
[2023-09-25 13:21] VITALS: BP 118/70; PULSE 62; TEMP 98
--- NOTE | 2023-09-25 14:54 | P.DS ---
Providers Date of admission: 09/18/23 01:04 Expected date of discharge: 09/25/23 Attending physician: Camille Patino Consults: 09/18/23 01:24 Consult Physician Routine Consulting Provider: Patricia Alonso Consult Reason/Comments: lower extremity weakness Do you want consulting provider notified?: Yes 09/18/23 17:51 Consult Physician Routine Consulting Provider: Joshua Mullen Consult Reason/Comments: CHF Do you want consulting provider notified?: Yes 09/19/23 10:25 Consult Physician Routine Consulting Provider: Jaden Iyer Consult Reason/Comments: abdnormal CT Do you want consulting provider notified?: Yes 09/19/23 15:54 Consult Physician Routine Consulting Provider: Tres Cr Consult Reason/Comments: urinary incontinence Do you want consulting provider notified?: Yes Primary care physician: Liza Correia Hospital Course: Diagnosis on discharge: Generalized weakness, with difficulty standing and walking Febrile illness, possible pneumonia with bibasilar opacities on chest x-ray. Patient was evaluated by pulmonary services Chronic diastolic congestive heart failure Recent onset of urinary incontinence. Urology services consulted. Urology service is consulted Underlying history of possible Lewy body dementia Underlying history of possible Parkinson disease Underlying history of hypertension Hospital course: Gold Tsang, is an 83-year-old male who presented to [facility] emergency room with a chief complaint of worsening generalized weakness, and urinary incontinence, symptoms started about 1 week ago and has been worsening, patient was seen and examined in the emergency room, his and daughter at the bedside, they state that he was in his usual state of health until about 1 week ago where he started having worsening weakness, and had several episodes of urinary incontinence, they state that he was diagnosed with possible Parkinson disease about 1 year ago he was tried on Sinemet without any significant improvement and that was discontinued, a possible diagnosis of Lewy body dementia was entertained, family also stated that he is 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 He was ealuated in the emergency room vital examination on presentation revealed 100.3 pulse 68 respiration 22 blood pressure 168/90 pulse ox 95% on room air Laboratory data revealed a white blood count of 7.6 hemoglobin 13.1 platelet count 140 sodium 130 BUN 30 creatinine 1.19 BNP 5570 Testing in the emergency room revealed CT scan of the brain revealed age-related atrophic and chronic small vessel ischemic change without acute intracranial process, CT scan of the lumbar spine revealed no acute fracture, chest x-ray revealed cardiomegaly with bibasilar opacities Patient was admitted to medical floor for further evaluation and treatment On 09/19/2023 patient is currently resting comfortably in bed. MRI of the brain has been ordered per neurology. Patient having abnormal CT scan of chest will consult pulmonary services and procalcitonin level. At this time patient denies chest pain or shortness of breath. Patient denies nausea vomiting or diarrhea. Patient denies any urinary burning or frequency. On 09/20/2023 patient is currently sitting up in chair. Family at bedside. Awaiting urology consult awaiting neurology consult for urinary incontinence. Neurology cardiology and pulmonary services are following. PT OT consulted. Patient will possibly need rehab upon discharge. Patient denies chest pain or shortness of breath. Patient denies nausea vomiting or diarrhea. Patient denies any urinary burning or frequency On 09/21/2023 patient was seen and examined on the medical floor, he is alert and oriented x 3 in no apparent distress, he is complaining of cough and chest congestion, he is also complaining of low back pain, and urinary incontinence, otherwise he denies any complaints there is no fever or chills, no headache or dizziness no chest pain no shortness of breath, no nausea or vomiting no abdominal pain no diarrhea no urinary symptoms. At this time will recheck chest x-ray, check MRI of the lumbar spine, awaiting recommendation from urology regarding urinary incontinence. On 09/22/2023 patient's alert and oriented currently sitting in bed. Patient to have MRI of the lumbar spine today due to ongoing back pain.Chest x-ray was completed showing no acute pulmonary process.This time patient denies chest pain or shortness breath. Patient denies nausea vomiting or diarrhea. Patient denies any urinary burning or frequency On 10/01/2023 patient was seen and examined on the medical floor, he is alert and oriented x 3 in no apparent distress he is sitting up in a chair he is complaining of bilateral lower extremity pain, he is still complaining of stool and urine incontinence, otherwise he denies any complaints at this time there is no fever or chills no headache or dizziness no chest pain no shortness of breath no cough no nausea or vomiting no abdominal pain no burning with urination no frequency or urgency and no hematuria. Lumbar spine MRI results discussed with patient and his , input from multiple specialist including neurology, urology, pulmonary and cardiology reviewed with patient and his , at this time will continue with current management continue with physical therapy, possible transfer to rehab on Monday. On 09/24/2023 patient is alert and oriented x 3. Current vital signs Temp 98.6, heart 68, respiratory rate 16, blood pressure 159/80 with pulse ox 96% on room air. Patient denies chest pain or shortness of breath. Patient denies nausea vomiting or diarrhea. Patient denies any urinary burning or frequency On 09/25/2023 patient was seen and examined on the medical floor, he is alert and oriented x 3 in no apparent distress there is no fever or chills no headache or dizziness no chest pain no shortness of breath no cough no nausea or vomiting no abdominal pain no diarrhea no urinary symptoms patient will be transferred to longterm for rehabilitation today he will follow-up with cardiology in 1 to 2 weeks. Patient will continue to follow with his neurologist as outpatient. Patient Condition at Discharge: Stable Plan - Discharge Summary Discharge Rx Participant: No New Discharge Prescriptions: New Tamsulosin [Flomax] 0.4 mg PO DAILY #30 cap Spironolactone [Aldactone] 50 mg PO DAILY #0 tab Docusate [Colace] 100 mg PO DAILY cap Valsartan [Diovan] 320 mg PO DAILY tab Furosemide [Lasix] 40 mg PO DAILY tab Acetaminophen Tab [Tylenol] 650 mg PO Q6HR PRN tab PRN Reason: Mild Pain Or Fever > 100.5 hydrALAZINE HCL [Apresoline] 75 mg PO TID tab Artificial Tears-Hypromellose [Artificial Tear Drops] 1 drops BOTH EYES QID PRN ml PRN Reason: Dry Eye(S) carvediloL [Coreg*] 50 mg PO BID-W/MEALS tab Continue Aspirin EC [Ecotrin Low Dose] 81 mg PO DAILY Temazepam [Restoril] 15 mg PO HS traMADol HCl [Ultram] 50 mg PO HS PRN PRN Reason: Pain Magnesium Oxide [Magox 400] 400 mg PO DAILY Discontinued Amoxicillin 500 mg PO BID hydrALAZINE HCL [Apresoline] 50 mg PO BID Labetalol [Trandate] 200 mg PO TID Discharge Medication List Aspirin EC [Ecotrin Low Dose] 81 mg PO DAILY 09/18/23 [History] Magnesium Oxide [Magox 400] 400 mg PO DAILY 09/18/23 [History] Temazepam [Restoril] 15 mg PO HS 09/18/23 [History] traMADol HCl [Ultram] 50 mg PO HS PRN 09/18/23 [History] Tamsulosin [Flomax] 0.4 mg PO DAILY #30 cap 09/22/23 [Rx] Acetaminophen Tab [Tylenol] 650 mg PO Q6HR PRN tab 09/25/23 [Rx] Artificial Tears-Hypromellose [Artificial Tear Drops] 1 drops BOTH EYES QID PRN ml 09/25/23 [Rx] Docusate [Colace] 100 mg PO DAILY cap 09/25/23 [Rx] Furosemide [Lasix] 40 mg PO DAILY tab 09/25/23 [Rx] Spironolactone [Aldactone] 50 mg PO DAILY #0 tab 09/25/23 [Rx] Valsartan [Diovan] 320 mg PO DAILY tab 09/25/23 [Rx] carvediloL [Coreg*] 50 mg PO BID-W/MEALS tab 09/25/23 [Rx] hydrALAZINE HCL [Apresoline] 75 mg PO TID tab 09/25/23 [Rx] Follow up Appointment(s)/Referral(s): Liza Correia MD [Primary Care Provider] - 1-2 days
[2023-09-25] MEDS: hydrALAZINE HCL 25 MG TAB PO SCH (16:33)
--- NOTE | 2023-10-09 06:20 | CDI ---
Documentation Clarification Form Date: 10/09/2023 06:07:26 AM From: Cici Mann Admit Date: 09/18/2023 01:04:00 AM Patient Name: Gold Tsang Visit Number: [id number] Discharge Date: 09/25/2023 05:01:00 PM ATTENTION: The Clinical Documentation Specialists (CDI) and [facility] Coding Staff appreciate your assistance in clarifying documentation. Please respond to the clarification below the line at the bottom and electronically sign. The CDI & [facility] Coding staff will review the response and follow-up if needed. Please note: Queries are made part of the Legal Health Record. If you have any questions, please contact the author of this message via ITS. Doctor/Provider: Camille Patino Conflicting documentation has been found in the medical record. As attending physician, please provide clarification. Per 09/20 and 09/21 PN's. "Acute exacerbation of chronic systolic CHF LV EF 35% global hypokinesis." Per 09/18 PN and DCS "Chronic diastolic heart failure currently appears euvolemic." History/Risk Factors: weakness, urine incontinence, long standing hypertension, interstitial edema Clinical Indicators: BNP 5570, Chest CT "cardiomegaly, corrolate for mild CHF with pulmonary vascular congestion. EF 35%, CXR cardiomegaly. " Treatment: Lasix 40 mg PO Please clarify which diagnosis is most appropriate: [ xxxxx] Acute exacerbation of chronic systolic congestive heart failure [ ] Chronic diastolic heart failure [ ] Other (please specify) [ ] Unable to determine MTDD
== END 2023-09-25 17:01 | DRG 193 ==
LOC: EC 23:08 → 5NMEDONC 09-18 01:04
PROVIDERS: ADMIT Internal Medicine; ATTEND Internal Medicine
DX: J18.9 Pneumonia, unspecified organism (principal); I50.23 Acute on chronic systolic (congestive) heart failure; E87.1 Hypo-osmolality and hyponatremia; I42.8 Other cardiomyopathies; N39.42 Incontinence without sensory awareness; G31.83 Neurocognitive disorder with Lewy bodies; I11.0 Hypertensive heart disease with heart failure; I27.21 Secondary pulmonary arterial hypertension; G20.A1 Parkinson's disease without dyskinesia, without mention of fluctuations; F02.80 Dementia in other diseases classified elsewhere, unspecified severity, without behavioral disturbance, psychotic disturbance, mood disturbance, and anxiety; E78.5 Hyperlipidemia, unspecified; G62.9 Polyneuropathy, unspecified; I25.10 Atherosclerotic heart disease of native coronary artery without angina pectoris; I44.0 Atrioventricular block, first degree; I48.91 Unspecified atrial fibrillation; I49.1 Atrial premature depolarization; I71.21 Aneurysm of the ascending aorta, without rupture; R29.6 Repeated falls; Z79.82 Long term (current) use of aspirin; Z79.899 Other long term (current) drug therapy; R26.9 Unspecified abnormalities of gait and mobility; M54.9 Dorsalgia, unspecified; R15.9 Full incontinence of feces; R21 Rash and other nonspecific skin eruption
CPT/HCPCS: 36415; 70450; 70551; 71045; 71046; 71260; 72131; 72158; 80053; 81001; 82607; 82746; 83036; 83605; 83735; 83880; 83921; 84145; 84443; 85025; 85610; 85730; 87636; 93005; 93306; 93923; 94640; 96361; 96365; 96366; 96368; 99285